=== PATIENT | male | born 1945 | race Caucasian/White ===

== ENCOUNTER 2016-07-07 20:32 | Emergency (ER) | payer MEDICARE, OTHER ==
[~2016-07-07] VITALS: Ht 182.9 cm; Wt 77.1 kg
[2016-07-07] MEDS ORDERED: Thiamine 100mg tab ORAL ONE (21:15)
[2016-07-07] MEDS ORDERED: Pedialyte 1000ml Btl ORAL ONE (21:30)
--- NOTE | 2016-07-07 21:35 | Emergency Room Report ---
History of Present Illness General Chief Complaint: Alcohol Intoxication Source: Patient Present Illness HPI Patient is a 70-year-old male who presented after increased change in mental status. Patient states that he had normally drinks 1 bottle of vodka a day. Patient stated that he had one bottle of vodka today. The patient been vomiting he denied abdominal pain. Patient reported having some nausea no vomiting. He was brought in by EMS. Patient states that he is hungry and wants to eat. Allergies: Coded Allergies: NO KNOWN ALLERGIES (Unverified Allergy, Unknown, 01/13/15) Patient History Past Medical History: HTN Reviewed Nursing Documentation: PMH: Agreed, PSxH: Agreed Nursing Documentation-PMH Hx Hypertension: Yes - High red blood platelets Review of Systems All Other Systems: negative except mentioned in HPI Physical Exam Vital Signs Date Time Temp Pulse Resp B/P Pulse Ox O2 Delivery O2 Flow Rate FiO2 07/07/16 20:32 98.2 86 16 130/88 97 Room Air Sp02 EP Interpretation: reviewed, normal General Appearance: normal inspection, well appearing, no apparent distress, alert, GCS 15 Head: atraumatic ENT: normal ENT inspection, hearing grossly normal, normal voice Neck: normal inspection, full range of motion, supple, no bony tend Respiratory: normal inspection, lungs clear, normal breath sounds, no respiratory distress, no retraction, no wheezing Cardiovascular #1: regular rate, rhythm, no edema Gastrointestinal: normal inspection, normal bowel sounds, non tender, soft, no guarding, no hernia Genitourinary: no CVA tenderness Musculoskeletal: normal inspection, back normal, normal range of motion Neurologic: normal inspection, alert, oriented x3, responsive, 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 Differential diagnosis included but was not limited to ischemic stroke, subarachnoid hemorrhage, hypoglycemia, spinal cord injury, neurodegenerative disorder, urinary tract infection, hypoxemia. Per patient's history patient is likely intoxicated with alcohol. The patient reported having poor IV access and heat and had been tolerating oral fluids well. The patient was given oral thiamine as well as fluids. Patient gradual improvement in his mental status. Anticipate the patient will be discharged home after more sober. Labs Test 5/23/17 02:32 Urine Color Yellow Urine Appearance Clear Urine pH 6.5 (4.5-8.0) Urine Specific [place] 1.005 (1.005-1.035) Urine Protein Negative (NEGATIVE) Urine Glucose (UA) Negative (NEGATIVE) Urine Ketones Negative (NEGATIVE) Urine Occult Blood Negative (NEGATIVE) Urine Nitrite Negative (NEGATIVE) Urine Bilirubin Negative (NEGATIVE) Urine Urobilinogen Normal MG/DL (0.0-1.0) Urine Leukocyte Esterase Negative (NEGATIVE) Last Vital Signs Date Time Temp Pulse Resp B/P Pulse Ox O2 Delivery O2 Flow Rate FiO2 07/07/16 20:32 98.2 86 16 130/88 97 Room Air Status: improved Disposition: HOME, SELF-CARE Condition: Stable Kirt Roa July 07, 2016 21:35
[2016-07-07 23:20] VITALS: BP 145/89
[2016-07-08 02:58] LABS: APPEARANCE,URINE CLEAR; KETONES,URINE NEGATIVE (NEGATIVE); LEUKOCYTE ESTERASE ,URINE NEGATIVE (NEGATIVE); NITRITE,URINE NEGATIVE (NEGATIVE); PH,URINE 6.5 (4.5-8.0); PROTEIN,URINE NEGATIVE (NEGATIVE); UROBILINOGEN,URINE NORMAL MG/DL (0.0-1.0)
[2016-07-08 03:10] VITALS: BP 153/89
[2016-07-08] MEDS ORDERED: chlordiazePOXIDE 25mg Cap ONE (06:09)
[2016-07-08] MEDS ORDERED: chlordiazePOXIDE 25mg Cap ORAL ONE (06:15)
[2016-07-08 06:16] VITALS: BP 160/86
[2016-07-08 06:17] VITALS: BP 160/86
--- NOTE | 2016-07-08 13:32 | Diagnostic Imaging Report ---
Indication: SOB Technique: One view of the chest Comparison: none Findings: Lungs and pleural space are clear. Heart size is borderline enlarged. The aorta is tortuous and somewhat ectatic. There is surgical hardware in the right shoulder. There are surgical clips in the neck Impression: Borderline cardiomegaly. No definite acute process Incidental findings as noted
--- NOTE | 2016-07-08 18:33 | Cardiology Report ---
APPROVED REPORT EKG Measurement Heart [id number] ID [id number] Unusual P axis, possible ectopic atrial rhythm Anterior infarct, age undetermined Abnormal ECG
== END 2016-07-08 06:17 | disposition home or self-care (01) ==
LOC: EDBD 20:32 → EDUNIT# 20:32 → EMR 20:48
DX: F10.129 Alcohol abuse with intoxication, unspecified (principal); I10 Essential (primary) hypertension
CPT/HCPCS: 71010; 81003; 93005; 99284

== ENCOUNTER 2017-02-12 15:40 | Emergency (ER) | payer MEDICARE, OTHER ==
[~2017-02-12] VITALS: Ht 182.9 cm; Wt 86.2 kg
[2017-02-12] MEDS ORDERED: IBUPROFEN600 MG ORAL (16:51)
[2017-02-12] MEDS ORDERED: Ketorolac 30mg Inj IM ONE (17:00)
[2017-02-12 17:05] VITALS: BP_SYST 160; BP_DIAS 105; BP_DIAS 89
--- NOTE | 2017-02-14 15:13 | Emergency Room Report ---
History of Present Illness General Chief Complaint: Lower Back Pain or Injury Source: Patient, EMS Present Illness HPI 71-year-old male presents ED pending of back pain. Brought in by EMS. Patient states he fell out of his bed today landing on his back. Denies hitting his head or LOC. Patient presents with back pain, sharp, nonradiating. Denies any other injuries. No other aggravating denies any other associated symptoms Allergies: Coded Allergies: NO KNOWN ALLERGIES (Unverified Allergy, Unknown, 01/13/15) Patient History Past Medical History: HTN Past Surgical History: none Pertinent Family History: none Social History: Denies: smoking, alcohol use, drug use Immunizations: UTD Reviewed Nursing Documentation: PMH: Agreed, PSxH: Agreed Nursing Documentation-PMH Past Medical History: No History, Except For Hx Hypertension: Yes Review of Systems All Other Systems: negative except mentioned in HPI Physical Exam Vital Signs Date Time Temp Pulse Resp B/P (MAP) Pulse Ox O2 Delivery O2 Flow Rate FiO2 02/12/17 15:37 98.1 80 16 164/100 97 Room Air Sp02 EP Interpretation: reviewed, normal General Appearance: no apparent distress, alert, GCS 15, non-toxic Head: normocephalic, atraumatic Eyes: bilateral eye normal inspection, bilateral eye PERRL ENT: hearing grossly normal, normal pharynx, no angioedema, normal voice Neck: full range of motion, supple/symm/no masses Respiratory: chest non-tender, lungs clear, normal breath sounds, speaking full sentences Cardiovascular #1: regular rate, rhythm, no edema Cardiovascular #2: 2+ carotid (R), 2+ carotid (L), 2+ radial (R), 2+ radial (L) , 2+ dorsalis pedis (R), 2+ dorsalis pedis (L) Gastrointestinal: normal bowel sounds, non tender, soft, non-distended, no guarding, no rebound Rectal: deferred Genitourinary: normal inspection, no CVA tenderness, no vertebral tenderness Musculoskeletal: back normal, gait/station normal, normal range of motion, non- tender, tender - paraspinal Neurologic: alert, oriented x3, responsive, motor strength/tone normal, sensory intact, speech normal Psychiatric: judgement/insight normal, memory normal, mood/affect normal, no suicidal/homicidal ideation Reflexes: 3+ bicep (R), 3+ bicep (L), 3+ tricep (R), 3+ tricep (L), 3+ knee (R) , 3+ knee (L) Skin: normal color, no rash, warm/dry, well hydrated Lymphatic: no adenopathy Medical Decision Making Diagnostic Impression: Primary Impression: Low back pain Qualified Codes: M54.5 - Low back pain ER Course Hospital Course 71-year-old male presents ED complaining of lower back pain. fall from bed Differential diagnoses include: pyelonephritis, kidney stone, muscle strain, Lspine fracture Clinical course Patient placed on stretcher. After initial history physical exam reveals a male in no acute distress. There is no vertebral body tenderness in the C- spine T-spine or L-spine. Some paraspinal lumbar tenderness noted. Remainder physical exam is unremarkable. I ordered toradol for pain. Upon reassessment patient states pain has improved. Diagnosis - back pain Stable and discharged to home with prescription for Motrin. Followup with PMD. Return to ED if symptoms recur or worsen Last Vital Signs Date Time Temp Pulse Resp B/P (MAP) Pulse Ox O2 Delivery O2 Flow Rate FiO2 02/12/17 17:05 97.9 100 16 160/89 98 Room Air Status: improved Disposition: HOME, SELF-CARE Condition: Stable Scripts Ibuprofen* (MOTRIN*) 600 Mg Tablet 600 MG ORAL Q8H Y for For Pain, #30 TAB 0 Refills Prov: RAFITA DESOUZA M.D. 02/12/17 Referrals: NOT CHOSEN IPA/,REFERRING (PCP) Patient Instructions: Back Pain, Adult RAFITA DESOUZA M.D. Feb 14, 2017 15:13
== END 2017-02-12 17:30 | disposition home or self-care (01) ==
LOC: EDBD 15:40 → EMR 17:28
DX: M54.5 Low back pain (principal); I10 Essential (primary) hypertension
CPT/HCPCS: 96372; 99283; J1885

== ENCOUNTER 2017-05-19 13:54 | Inpatient (IN) | payer MEDICARE, OTHER ==
[~2017-05-19] VITALS: Ht 180.3 cm; Wt 78.2 kg
[~2017-05-19 13:54] MED LIST: ASPIR 8181 MG ORAL; IBUPROFEN600 MG ORAL
--- NOTE | 2017-05-19 14:06 | Emergency Room Report ---
History of Present Illness General Chief Complaint: Abdominal Pain Source: EMS Present Illness HPI Patient is a 71-year-old male brought in by EMS after increased chest pain. Patient had reported increased chest discomfort which began approximately 8:00 in the morning. The patient denied any fever or cough. He reports having increased abdominal pain. The patient states he had prior history of heavy alcohol abuse and quit alcohol approximately 2 weeks ago. 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 Allergies: Coded Allergies: HEPARIN (Unverified Allergy, Severe, 05/19/17) Patient History Past Medical History: see triage record Reviewed Nursing Documentation: PMH: Agreed; PSxH: Agreed Nursing Documentation-PMH Hx Hypertension: Yes - High red blood platelets Review of Systems All Other Systems: negative except mentioned in HPI Physical Exam Vital Signs Date Time Temp Pulse Resp B/P (MAP) Pulse Ox O2 Delivery O2 Flow Rate FiO2 05/19/17 13:48 97.8 90 19 157/94 97 Room Air 97.9 Sp02 EP Interpretation: reviewed, normal General Appearance: normal inspection, well appearing, no apparent distress, alert, GCS 15 Head: atraumatic ENT: normal ENT inspection, hearing grossly normal, normal voice Neck: normal inspection, full range of motion, supple, no bony tend Respiratory: normal inspection, lungs clear, normal breath sounds, no respiratory distress, no retraction, no wheezing Cardiovascular #1: regular rate, rhythm, no edema Gastrointestinal: normal inspection, normal bowel sounds, non tender, soft, no guarding, no hernia Genitourinary: no CVA tenderness Musculoskeletal: normal inspection, back normal, normal range of motion Neurologic: normal inspection, alert, oriented x3, responsive, catalyst impregnator III-XII nml as tested, speech normal Psychiatric: normal inspection, judgement/insight normal, mood/affect normal Skin: normal inspection, normal color, no rash Medical Decision Making Diagnostic Impression: Primary Impression: ACS (acute coronary syndrome) Additional Impressions: CHF (congestive heart failure) Polycythemia vera Splenomegaly Gallstone ER Course Patient presented for abdominal pain. Differential diagnoses included ischemic bowel, appendicitis, perforated viscus, abdominal aortic aneurysm, inferior myocardial infarction, viral gastroenteritis Because of complexity of patient's case laboratory testing and imaging studies were ordered.Laboratory testing showed elevation of the patient's white blood count as well as his hemoglobin as well as platelet count. This is consistent with possible polycythemia vera. The testing was notable for elevated BNP. Chest x-ray one view read by radiology showed cardiomegaly without adithya pulmonary edema consistent with congestive heart failure.The patient was noted to be in an alcohol treatment facility which requested that the patient receive no narcotics. The patient was given non narcotic pain medications with improvement.Dr. Richard was contacted for inpatient management due to complexity of medical condition. Labs Test 05/19/17 15:24 05/19/17 18:00 White Blood Count 19.8 K/UL (4.8-10.8) Red Blood Count 6.88 M/UL (4.70-6.10) Hemoglobin 17.8 G/DL (14.2-18.0) Hematocrit 53.6 % (42.0-52.0) Mean Corpuscular Volume 78 FL (80-99) Mean Corpuscular Hemoglobin 25.9 PG (27.0-31.0) Mean Corpuscular Hemoglobin Concent 33.3 G/DL (32.0-36.0) Red Cell Distribution Width 15.8 % (11.6-14.8) Platelet Count 853 K/UL (150-450) Mean Platelet Volume 6.8 FL (6.5-10.1) Neutrophils (%) (Auto) % (45.0-75.0) Lymphocytes (%) (Auto) % (20.0-45.0) Monocytes (%) (Auto) % (1.0-10.0) Eosinophils (%) (Auto) % (0.0-3.0) Basophils (%) (Auto) % (0.0-2.0) Differential Total Cells Counted 100 Neutrophils % (Manual) 84 % (45-75) Lymphocytes % (Manual) 8 % (20-45) Monocytes % (Manual) 5 % (1-10) Eosinophils % (Manual) 2 % (0-3) Basophils % (Manual) 1 % (0-2) Band Neutrophils 0 % (0-8) Platelet Estimate Increased Platelet Morphology Normal Red Blood Cell Morphology Normal Sodium Level 137 MMOL/L (136-145) Potassium Level 4.7 MMOL/L (3.5-5.1) Chloride Level 104 MMOL/L (98-107) Carbon Dioxide Level 20 MMOL/L (21-32) Anion Gap 13 mmol/L (5-15) Blood Urea Nitrogen 20 mg/dL (7-18) Creatinine 0.8 MG/DL (0.55-1.30) Estimat Glomerular Filtration Rate > 60 mL/min (>60) Glucose Level 98 MG/DL (74-106) Calcium Level 8.9 MG/DL (8.5-10.1) Total Bilirubin 0.5 MG/DL (0.2-1.0) Aspartate Amino Transf (AST/SGOT) 40 U/L (15-37) Alanine Aminotransferase (ALT/SGPT) 16 U/L (12-78) Alkaline Phosphatase 110 U/L (46-116) Total Creatine Kinase 70 U/L (26-308) Creatine Kinase MB 0.9 NG/ML (0.0-3.6) Creatine Kinase MB Relative Index 1.2 Troponin I 0.000 ng/mL (0.000-0.056) Pro-B-Type Natriuretic Peptide 1273 pg/mL (0-125) Total Protein 8.0 G/DL (6.4-8.2) Albumin 4.2 G/DL (3.4-5.0) Globulin 3.8 g/dL Albumin/Globulin Ratio 1.1 (1.0-2.7) Lipase 200 U/L (73-393) Urine Color Pale yellow Urine Appearance Clear Urine pH 5 (4.5-8.0) Urine Specific [place] 1.010 (1.005-1.035) Urine Protein 1+ (NEGATIVE) Urine Glucose (UA) Negative (NEGATIVE) Urine Ketones Negative (NEGATIVE) Urine Occult Blood Negative (NEGATIVE) Urine Nitrite Negative (NEGATIVE) Urine Bilirubin Negative (NEGATIVE) Urine Urobilinogen Normal MG/DL (0.0-1.0) Urine Leukocyte Esterase 1+ (NEGATIVE) Urine RBC 0-2 /HPF (0 - 0) Urine WBC 2-4 /HPF (0 - 0) Urine Squamous Epithelial Cells None /LPF (NONE/OCC) Urine Amorphous Sediment Few /LPF (NONE) Urine Bacteria Few /HPF (NONE) EKG Diagnostic Results Rate: normal Rhythm: NSR ST Segments: other - poor r wave progression Last Vital Signs Date Time Temp Pulse Resp B/P (MAP) Pulse Ox O2 Delivery O2 Flow Rate FiO2 05/19/17 13:48 97.8 90 19 157/94 97 Room Air 97.9 Status: improved Disposition: ADMITTED INPATIENT Condition: Stable Kirt Roa May 19, 2017 14:06
[2017-05-19] MEDS ORDERED: Aspirin Baby 81mg ORAL ONE (14:15)
[2017-05-19] MEDS ORDERED: Morphine Sulfate 4mg/ml Inj IVP ONE (14:15)
[2017-05-19 14:25] VITALS: BP 157/94
[2017-05-19] MEDS ORDERED: Lidocaine 2% Visc 15ml soln ORAL ONE (15:00)
[2017-05-19] MEDS ORDERED: Dicyclomine HCl 10mg/5ml oral soln ORAL ONE (15:00)
--- NOTE | 2017-05-19 15:14 | Diagnostic Imaging Report ---
Indication: Shortness of breath Technique: One view of the chest Comparison: none Findings: The heart is borderline enlarged. The aorta is tortuous. Upper mediastinum is unremarkable. Surgical hardware is seen in the right shoulder. Findings are unchanged Impression: No acute process
[2017-05-19 15:40] VITALS: BP 155/87
[2017-05-19 15:42] LABS: HEMATOCRIT 53.6 % (42.0-52.0); HEMOGLOBIN 17.8 G/DL (14.2-18.0); MEAN CORPUSCULAR VOLUME 78 FL (80-99); PLATELET COUNT 853 K/UL (150-450); RED BLOOD COUNT 6.88 M/UL (4.70-6.10); RED CELL DISTRIBUTION WIDTH 15.8 % (11.6-14.8); WHITE BLOOD COUNT 19.8 K/UL (4.8-10.8)
[2017-05-19 15:54] LABS: ANION GAP 13 mmol/L (5-15); BLOOD UREA NITROGEN 20 mg/dL (7-18); CALCIUM 8.9 MG/DL (8.5-10.1); CARBON DIOXIDE 20 MMOL/L (21-32); CHLORIDE 104 MMOL/L (98-107); CREATININE 0.8 MG/DL (0.55-1.30); POTASSIUM 4.7 MMOL/L (3.5-5.1); SODIUM 137 MMOL/L (136-145)
[2017-05-19 16:07] LABS: ALANINE AMINOTRANSFERASE 16 U/L (12-78); ALBUMIN 4.2 G/DL (3.4-5.0); ALBUMIN/GLOBULIN RATIO 1.1 (1.0-2.7); ALKALINE PHOSPHATASE 110 U/L (46-116); ASPARTATE AMINO TRANSFERASE 40 U/L (15-37); BILIRUBIN,TOTAL 0.5 MG/DL (0.2-1.0); CKMB 0.9 NG/ML (0.0-3.6); CREATINE KINASE 70 U/L (26-308)
--- NOTE | 2017-05-19 16:57 | Diagnostic Imaging Report ---
Clinical Indication: Abdominal pain, nausea, vomiting Technique: Patient given oral contrast. IV administration nonionic contrast. Venous phase spiral acquisition obtained through the abdomen and pelvis. Multiplanar reconstructions were generated. Total dose length product 764.2 mGycm. CTDIvol(s) 14.79 mGy. Dose reduction achieved using automated exposure control Comparison: none Findings: There is excellent quality GI tract opacification. Normal appendix. There is colonic diverticulosis. No evidence of diverticulitis. Scattered areas of apparent colonic wall thickening are all probably artifacts of underdistention. No small bowel distention or small bowel wall thickening. Ingested contrast is seen to traverse the entirety of the small bowel and of the colon. There is an is anastomotic staple line at the rectosigmoid junction. No evidence of adjacent recurrent abnormality. The distal esophagus, stomach, duodenum are unremarkable. The liver is unremarkable. The gallbladder contains gallstones. It is not distended and the wall is not thickened. No biliary ductal dilatation. The pancreas is unremarkable. The spleen is enlarged, measuring 16.7 cm long axis dimension. No focal abnormality. The adrenals are unremarkable. The kidneys demonstrate bilateral subcentimeter low-attenuation lesions which are too small to characterize. No calculi or hydronephrosis. Unremarkable bladder. Unusual dystrophic calcifications are seen posterior to the rectus abdominis muscle. The lung bases demonstrate areas of scarring or atelectasis bilaterally. The heart is enlarged. The visualized aortic root is ectatic but not quite aneurysmal, measuring 48 mm transverse diameter. The bones demonstrate age indeterminate compression fractures of T12 and L4. The T12 fracture results in focal kyphotic deformity. There is degenerative disc disease of the lumbar spine. Impression: No acute abnormality. Ingested contrast traverses entirety of the GI tract, so no obstructive pathology is evident Evidence of prior distal colon surgery Ectatic borderline aneurysmal aortic root. Correlate with clinical history and any prior exams that may be available, consider further evaluation with chest CT as clinically indicated Cholelithiasis Splenomegaly. Per discussion with referring physician, patient has history of hematopoietic disorder; finding likely related to such T12 and L4 vertebral body compression fractures. Age indeterminate. Consider MRI for better characterization if clinically relevant Cardiomegaly Bilateral basilar pulmonary atelectasis and/or scarring, left greater than right Bilateral subcentimeter low-attenuation renal lesions, too small to characterize, most likely benign simple cysts. No further follow-up necessary Degenerative spondylosis incidentally noted The CT scanner at [facility] is accredited by the [employer] and the scans are performed using protocols designed to limit radiation exposure to as low as reasonably achievable to attain images of sufficient resolution adequate for diagnostic evaluation.
[2017-05-19 17:04] VITALS: BP 145/88
[2017-05-19] MEDS ORDERED: HYDROCHLOROTHIA25 MG ORAL (17:18)
[2017-05-19] MEDS ORDERED: COREG6.25 MG ORAL (17:19)
[2017-05-19] MEDS ORDERED: DICYCLOMINE HCL10 MG PO (17:20)
[2017-05-19] MEDS ORDERED: ASPIRIN325 MG ORAL (18:09)
[2017-05-19 18:26] LABS: APPEARANCE,URINE CLEAR; BILIRUBIN, URINE NEGATIVE (NEGATIVE); COLOR,URINE PALE YELLOW; GLUCOSE, URINE (UA) NEGATIVE (NEGATIVE); KETONES,URINE NEGATIVE (NEGATIVE); LEUKOCYTE ESTERASE ,URINE 1+ (NEGATIVE); NITRITE,URINE NEGATIVE (NEGATIVE); PH,URINE 5 (4.5-8.0); PROTEIN,URINE 1+ (NEGATIVE); UROBILINOGEN,URINE NORMAL MG/DL (0.0-1.0)
[2017-05-19 19:10] VITALS: BP 118/78
[2017-05-19] MEDS ORDERED: Enalaprilat 2.5mg/2ml Inj IV PRN (21:30)
[2017-05-19] MEDS ORDERED: Morphine Sulfate 2mg/ml Inj IVP PRN (21:30)
[2017-05-19] MEDS ORDERED: Albuterol/Ipratropium 3ml neb HHN PRN (21:30)
[2017-05-19] MEDS ORDERED: Nitroglycerin Subl 0.4mg tab SL PRN (21:30)
[2017-05-19] MEDS ORDERED: dilTIAZem HCl 25mg/5ml Inj IV PRN (21:30)
[2017-05-19] MEDS ORDERED: Ketorolac 30mg Inj IV PRN (21:30)
[2017-05-19] MEDS ORDERED: Miralax 17gm pkt ORAL PRN (21:30)
[2017-05-19 22:06] VITALS: BP 119/72
[2017-05-19 23:15] VITALS: BP 153/92
[2017-05-20 04:00] VITALS: BP 131/90
[2017-05-20 07:56] LABS: BASOPHILS % (AUTO) 0.9 % (0.0-2.0); EOSINOPHILS % (AUTO) 3.5 % (0.0-3.0); HEMATOCRIT 55.7 % (42.0-52.0); MEAN CORPUSCULAR VOLUME 79 FL (80-99); NEUTROPHILS % (AUTO) 82.5 % (45.0-75.0); PLATELET COUNT 783 K/UL (150-450); RED BLOOD COUNT 7.01 M/UL (4.70-6.10); RED CELL DISTRIBUTION WIDTH 16.2 % (11.6-14.8); WHITE BLOOD COUNT 17.8 K/UL (4.8-10.8)
[2017-05-20 08:09] LABS: INR 1.2 (0.9-1.1)
[2017-05-20 08:23] LABS: CHOLESTEROL 92 MG/DL (< 200); HDL CHOLESTEROL 19 MG/DL (40-60); TRIGLYCERIDES 91 MG/DL (30-150)
[2017-05-20] MEDS: Aspirin Baby 81mg ORAL SCH (08:46)
[2017-05-20 09:00] VITALS: BP 120/85
[2017-05-20 12:00] VITALS: BP 130/90
--- NOTE | 2017-05-20 14:56 | History and Physical ---
History of Present Illness General Date patient seen: May 20, 2017 Reason for Hospitalization: Abdominal Pain Present Illness HPI 71-year-old male with hx of abdominal surgery secondary to "intestinal blockage", HTN, brought in by EMS after increased chest pain and abdominal pain. The patient states he had prior history of heavy alcohol abuse and quit alcohol approximately 2 weeks ago. He is admitted to telemetry for further evaluation. Allergies: Coded Allergies: HEPARIN (Unverified Allergy, Severe, 05/19/17) Medication History Scheduled Aspirin* (Aspirin*), 325 MG ORAL BID, (Reported) Discontinued Medications Aspirin* (Aspir 81*), 81 MG ORAL DAILY, (Reported) Discontinued Reason: Prescription changed Carvedilol (Coreg), 6.25 MG ORAL EVERY 12 HOURS Discontinued Reason: Pt stopped taking med Dicyclomine Hcl* (Dicyclomine Hcl*), 10 MG PO QID Discontinued Reason: Pt stopped taking med Hydrochlorothiazide* (Hydrochlorothiazide*), 25 MG ORAL DAILY Discontinued Reason: Pt stopped taking med Ibuprofen* (Motrin*), 600 MG ORAL Q8H PRN for For Pain Discontinued Reason: Pt stopped taking med Patient History Healthcare decision maker Resuscitation status Full Code Advanced Directive on File Past Medical/Surgical History Past Medical/Surgical History: (1) CHF (congestive heart failure) (2) Splenomegaly (3) Polycythemia vera Review of Systems All Other Systems: negative except mentioned in HPI Physical Exam General Appearance: WD/WN Lines, tubes and drains: peripheral HEENT: normocephalic, anicteric, PERRL Neck: non-tender, normal alignment, supple Respiratory/Chest: chest wall non-tender, lungs clear Cardiovascular/Chest: normal peripheral pulses, normal rate Abdomen: normal bowel sounds, non tender Genitourinary/Rectal: normal genital exam, normal rectal exam Extremities: normal range of motion 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 Last 24 Hour Vital Signs Date Time Temp Pulse Resp B/P (MAP) Pulse Ox O2 Delivery O2 Flow Rate FiO2 05/20/17 12:00 97.2 66 21 130/90 98 Room Air 97.2 05/20/17 11:56 67 05/20/17 09:00 97.5 78 20 120/85 95 Room Air 97.5 05/20/17 07:39 78 05/20/17 07:19 89 18 Room Air 05/20/17 04:00 97.3 74 18 131/90 94 Room Air 21 97.3 05/20/17 04:00 75 05/19/17 23:15 98.1 69 18 153/92 97 Room Air 21 98.1 05/19/17 23:14 71 05/19/17 22:38 98.1 77 19 119/72 99 Room Air 98.1 05/19/17 22:06 98.1 77 19 119/72 99 Room Air 98.1 05/19/17 19:10 98.1 76 19 118/78 99 Room Air 98.1 05/19/17 17:04 98.1 78 19 145/88 98 Room Air 98.1 05/19/17 15:40 97.9 77 19 155/87 97 Room Air 97.9 Intake and Output 05/19/17 05/20/17 19:00 07:00 Intake Total 400 ml Balance 400 ml Intake Oral 400 ml # Voids 1 Laboratory Tests Test 05/19/17 15:24 05/19/17 18:00 05/20/17 06:50 White Blood Count 19.8 K/UL (4.8-10.8) H 17.8 K/UL (4.8-10.8) H Red Blood Count 6.88 M/UL (4.70-6.10) H 7.01 M/UL (4.70-6.10) H Hemoglobin 17.8 G/DL (14.2-18.0) 18.0 G/DL (14.2-18.0) Hematocrit 53.6 % (42.0-52.0) H 55.7 % (42.0-52.0) H Mean Corpuscular Volume 78 FL (80-99) L 79 FL (80-99) L Mean Corpuscular Hemoglobin 25.9 PG (27.0-31.0) L 25.7 PG (27.0-31.0) L Mean Corpuscular Hemoglobin Concent 33.3 G/DL (32.0-36.0) 32.3 G/DL (32.0-36.0) Red Cell Distribution Width 15.8 % (11.6-14.8) H 16.2 % (11.6-14.8) H Platelet Count 853 K/UL (150-450) H 783 K/UL (150-450) H Mean Platelet Volume 6.8 FL (6.5-10.1) 6.9 FL (6.5-10.1) Neutrophils (%) (Auto) % (45.0-75.0) 82.5 % (45.0-75.0) H Lymphocytes (%) (Auto) % (20.0-45.0) 9.0 % (20.0-45.0) L Monocytes (%) (Auto) % (1.0-10.0) 4.0 % (1.0-10.0) Eosinophils (%) (Auto) % (0.0-3.0) 3.5 % (0.0-3.0) H Basophils (%) (Auto) % (0.0-2.0) 0.9 % (0.0-2.0) Differential Total Cells Counted 100 Neutrophils % (Manual) 84 % (45-75) H Lymphocytes % (Manual) 8 % (20-45) L Monocytes % (Manual) 5 % (1-10) Eosinophils % (Manual) 2 % (0-3) Basophils % (Manual) 1 % (0-2) Band Neutrophils 0 % (0-8) Platelet Estimate Increased H Platelet Morphology Normal Red Blood Cell Morphology Normal Sodium Level 137 MMOL/L (136-145) Potassium Level 4.7 MMOL/L (3.5-5.1) Chloride Level 104 MMOL/L (98-107) Carbon Dioxide Level 20 MMOL/L (21-32) L Anion Gap 13 mmol/L (5-15) Blood Urea Nitrogen 20 mg/dL (7-18) H Creatinine 0.8 MG/DL (0.55-1.30) Estimat Glomerular Filtration Rate > 60 mL/min (>60) Glucose Level 98 MG/DL (74-106) Calcium Level 8.9 MG/DL (8.5-10.1) Total Bilirubin 0.5 MG/DL (0.2-1.0) Aspartate Amino Transf (AST/SGOT) 40 U/L (15-37) H Alanine Aminotransferase (ALT/SGPT) 16 U/L (12-78) Alkaline Phosphatase 110 U/L (46-116) Total Creatine Kinase 70 U/L (26-308) Creatine Kinase MB 0.9 NG/ML (0.0-3.6) Creatine Kinase MB Relative Index 1.2 Troponin I 0.000 ng/mL (0.000-0.056) 0.003 ng/mL (0.000-0.056) Pro-B-Type Natriuretic Peptide 1273 pg/mL (0-125) H Total Protein 8.0 G/DL (6.4-8.2) Albumin 4.2 G/DL (3.4-5.0) Globulin 3.8 g/dL Albumin/Globulin Ratio 1.1 (1.0-2.7) Lipase 200 U/L (73-393) Urine Color Pale yellow Urine Appearance Clear Urine pH 5 (4.5-8.0) Urine Specific [place] 1.010 (1.005-1.035) Urine Protein 1+ (NEGATIVE) H Urine Glucose (UA) Negative (NEGATIVE) Urine Ketones Negative (NEGATIVE) Urine Occult Blood Negative (NEGATIVE) Urine Nitrite Negative (NEGATIVE) Urine Bilirubin Negative (NEGATIVE) Urine Urobilinogen Normal MG/DL (0.0-1.0) Urine Leukocyte Esterase 1+ (NEGATIVE) H Urine RBC 0-2 /HPF (0 - 0) H Urine WBC 2-4 /HPF (0 - 0) Urine Squamous Epithelial Cells None /LPF (NONE/OCC) Urine Amorphous Sediment Few /LPF (NONE) H Urine Bacteria Few /HPF (NONE) Prothrombin Time 12.9 SEC (9.30-11.50) H Prothromb Time International Ratio 1.2 (0.9-1.1) H Activated Partial Thromboplast Time 34 SEC (23-33) H C-Reactive Protein, Quantitative < 0.4 mg/dL (0.00-0.90) Triglycerides Level 91 MG/DL (30-150) Cholesterol Level 92 MG/DL (< 200) LDL Cholesterol 61 mg/dL (<100) HDL Cholesterol 19 MG/DL (40-60) L Cholesterol/HDL Ratio 4.8 (3.3-4.4) H Thyroid Stimulating Hormone (TSH) 2.685 uiU/mL (0.358-3.740) Height (Feet): 5 Height (Inches): 11.00 Weight (Pounds): 172 Medications Current Medications Medications (Trade) Dose Ordered Sig/Sameer Route PRN Reason Start Time Stop Time Status Last Admin Dose Admin Acetaminophen (Tylenol) 650 mg Q4H PRN ORAL FEVER 05/19/17 21:30 06/18/17 21:29 Albuterol/ Ipratropium (Albuterol/ Ipratropium) 3 ml Q4H PRN HHN Shortness of Breath 05/19/17 21:30 05/24/17 21:29 Aspirin (ASA) 162 mg DAILY ORAL 05/20/17 09:00 06/19/17 08:59 05/20/17 08:46 Diltiazem HCl (Cardizem) 10 mg Q1H PRN IV HR > 120 05/19/17 21:30 06/18/17 21:29 Enalaprilat (Vasotec) 2.5 mg Q6H PRN IV sbp more than 160 05/19/17 21:30 06/18/17 21:29 Morphine Sulfate (Morphine Sulfate) 2 mg Q4H PRN IVP severe Pain (Pain Scale 7-10) 05/19/17 21:30 05/26/17 21:29 Nitroglycerin (Ntg) 0.4 mg Q5MIN X 3 DOSES PRN SL Prn Chest Pain 05/19/17 21:30 06/18/17 21:29 Ondansetron HCl (Zofran) 4 mg Q6H PRN IVP Nausea & Vomiting 05/19/17 21:30 06/18/17 21:29 Pantoprazole (Protonix) 40 mg DAILY ORAL 05/20/17 09:00 06/19/17 08:59 05/20/17 08:46 Polyethylene Glycol (Miralax) 17 gm DAILYPRN PRN ORAL Constipation 05/19/17 21:30 06/18/17 21:29 Temazepam (Restoril) 15 mg HSPRN PRN ORAL Insomnia 05/19/17 21:30 05/26/17 21:29 Assessment/Plan Problem List: (1) ACS (acute coronary syndrome) ICD Codes: I24.9 - Acute ischemic heart disease, unspecified SNOMED: 383472777 (2) Intractable abdominal pain ICD Codes: R10.9 - Unspecified abdominal pain SNOMED: 63776777, 366849976 (3) Splenomegaly ICD Codes: R16.1 - Splenomegaly, not elsewhere classified SNOMED: 54396402 Assessment/Plan serial ekg, troponin, echo cardio to see GI evaluaion hematology to see for increased WBC blood smear symptomatic treatment. Kyleigh Richard MD May 20, 2017 14:56
--- NOTE | 2017-05-20 15:36 | Cardiology Report ---
APPROVED REPORT EXAM: Two-dimensional and M-mode echocardiogram with Doppler and color Doppler. INDICATION Left Ventricular Function M-Mode DIMENSIONS IVSd1.2 (0.7-1.1cm)Left Atrium (MM)3.4 (1.6-4.0cm) LVDd5.1 (3.5-5.6cm)Aortic Root3.1 (2.0-3.7cm) PWd0.9 (0.7-1.1cm)Aortic Cusp Exc.2.0 (1.5-2.0cm) LVDs3.3 (2.5-4.0cm) PWs1.4 cm Global left ventricular hypokinesis. Normal left ventricular chamber size. Left ventricular ejection fraction estimated to be 40 %. Mild left ventricular hypertrophy. Anterior Echo-free space, may be due to pericardial fat or effusion. All other cardiac chamber sizes are within normal limits. Mild focal aortic valve sclerosis with adequate cusp excursion. Mildly thickened mitral valve leaflets with normal excursion. Mild mitral annulus and aortic root calcification. Normal pulmonic valve structure. Normal tricuspid valve structure. IVC is normal in size with physiological collapse. A color flow and spectral Doppler study was performed and revealed: Moderate aortic insufficiency. Trace mitral regurgitation. Mitral diastolic velocities suggest mild left ventricular diastolic dysfunction (Grade I). Trace tricuspid regurgitation. Tricuspid systolic velocities suggests peak right ventricular systolic pressure of 9 mmHg. Trace pulmonic regurgitation present.
[2017-05-20 16:00] VITALS: BP 130/84
--- NOTE | 2017-05-20 16:38 | Cardiology Report ---
APPROVED REPORT EKG Measurement Heart [id number] Normal sinus rhythm Possible Left atrial enlargement Left anterior fascicular block Possible Inferior infarct, age undetermined Anterior infarct, age undetermined Abnormal ECG
--- NOTE | 2017-05-20 17:24 | Cardiology Progress Note ---
Assessment/Plan Assessment/Plan ? 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 to me [place] essential thormbocytosis alcoholism trop neg should have an ischemia evlaution will need tostart on low dose acei abn ekg may be suggestive of old myocardial injury as well needs hemaotoligst to see fo thormbocytosis used to be on hyroxyurea which h has not taken for a while [id number] Objective Last 24 Hour Vital Signs Date Time Temp Pulse Resp B/P (MAP) Pulse Ox O2 Delivery O2 Flow Rate FiO2 05/20/17 16:00 97.2 69 20 130/84 97 Room Air 97.2 05/20/17 12:00 97.2 66 21 130/90 98 Room Air 97.2 05/20/17 11:56 67 05/20/17 09:00 97.5 78 20 120/85 95 Room Air 97.5 05/20/17 07:39 78 05/20/17 07:19 89 18 Room Air 05/20/17 04:00 97.3 74 18 131/90 94 Room Air 21 97.3 05/20/17 04:00 75 05/19/17 23:15 98.1 69 18 153/92 97 Room Air 21 98.1 05/19/17 23:14 71 05/19/17 22:38 98.1 77 19 119/72 99 Room Air 98.1 05/19/17 22:06 98.1 77 19 119/72 99 Room Air 98.1 05/19/17 19:10 98.1 76 19 118/78 99 Room Air 98.1 Intake and Output 05/19/17 05/20/17 19:00 07:00 Intake Total 400 ml Balance 400 ml Intake Oral 400 ml # Voids 1 Laboratory Tests Test 05/19/17 18:00 05/20/17 06:50 Urine Color Pale yellow Urine Appearance Clear Urine pH 5 (4.5-8.0) Urine Specific [place] 1.010 (1.005-1.035) Urine Protein 1+ (NEGATIVE) H Urine Glucose (UA) Negative (NEGATIVE) Urine Ketones Negative (NEGATIVE) Urine Occult Blood Negative (NEGATIVE) Urine Nitrite Negative (NEGATIVE) Urine Bilirubin Negative (NEGATIVE) Urine Urobilinogen Normal MG/DL (0.0-1.0) Urine Leukocyte Esterase 1+ (NEGATIVE) H Urine RBC 0-2 /HPF (0 - 0) H Urine WBC 2-4 /HPF (0 - 0) Urine Squamous Epithelial Cells None /LPF (NONE/OCC) Urine Amorphous Sediment Few /LPF (NONE) H Urine Bacteria Few /HPF (NONE) White Blood Count 17.8 K/UL (4.8-10.8) H Red Blood Count 7.01 M/UL (4.70-6.10) H Hemoglobin 18.0 G/DL (14.2-18.0) Hematocrit 55.7 % (42.0-52.0) H Mean Corpuscular Volume 79 FL (80-99) L Mean Corpuscular Hemoglobin 25.7 PG (27.0-31.0) L Mean Corpuscular Hemoglobin Concent 32.3 G/DL (32.0-36.0) Red Cell Distribution Width 16.2 % (11.6-14.8) H Platelet Count 783 K/UL (150-450) H Mean Platelet Volume 6.9 FL (6.5-10.1) Neutrophils (%) (Auto) 82.5 % (45.0-75.0) H Lymphocytes (%) (Auto) 9.0 % (20.0-45.0) L Monocytes (%) (Auto) 4.0 % (1.0-10.0) Eosinophils (%) (Auto) 3.5 % (0.0-3.0) H Basophils (%) (Auto) 0.9 % (0.0-2.0) Prothrombin Time 12.9 SEC (9.30-11.50) H Prothromb Time International Ratio 1.2 (0.9-1.1) H Activated Partial Thromboplast Time 34 SEC (23-33) H Troponin I 0.003 ng/mL (0.000-0.056) C-Reactive Protein, Quantitative < 0.4 mg/dL (0.00-0.90) Triglycerides Level 91 MG/DL (30-150) Cholesterol Level 92 MG/DL (< 200) LDL Cholesterol 61 mg/dL (<100) HDL Cholesterol 19 MG/DL (40-60) L Cholesterol/HDL Ratio 4.8 (3.3-4.4) H Thyroid Stimulating Hormone (TSH) 2.685 uiU/mL (0.358-3.740) GILLES MIN May 20, 2017 17:24
[2017-05-20 20:00] VITALS: BP 122/82
--- NOTE | 2017-05-20 21:30 | Consultation ---
DATE OF CONSULTATION: 05/20/2017 CARDIOLOGY CONSULTATION CONSULTING PHYSICIAN: Shankar Mauricio M.D. REASON FOR REFERRAL: Chest pain. HISTORY OF PRESENT ILLNESS: This is a middle-aged gentleman who has a history of significant alcoholism, is now involved in alcohol rehabilitation program. The patient had two episodes of some nausea and vomiting. However, the set painter run sheet indicated that the patient was found in his bed at a sober living facility complaining of chest pain for approximately 5 to 6 hours, which he denied upon arrival of the paramedics. The patient was given some aspirin and was transferred to the emergency room. He absolutely denies any chest pain, pressure, tightness, heaviness, burning sensation in his chest. He denies any having any shortness of breath. No PND. No orthopnea. Occasional palpitation. No dizziness or lightheadedness. He does not have any exertional symptoms or shortness of breath. His main issue was that he has some abdominal discomfort. PAST MEDICAL HISTORY: Positive for high blood pressure. He has got essential thrombocytosis I suspect. No history of heart attack. No cancer. No stroke. No hepatitis, tuberculosis, asthma, or emphysema. No ulcers, kidney problems, liver problems, thyroid problems, anemia, arthritis, or prostate problems. ALLERGIES: He is allergic to heparin. SOCIAL HISTORY: He does not smoke. He has extensive alcohol intake, last alcoholic drink was 17 days ago. No drugs . REVIEW OF SYSTEMS: GASTROINTESTINAL: As mentioned, he did have 2 bouts of nausea and vomiting over two days prior to coming into the hospital. Otherwise negative. GENITOURINARY: Negative. PULMONARY: Negative CONSTITUTIONAL: Negative. NEUROLOGIC: Negative. PHYSICAL EXAMINATION: GENERAL: Shows to be middle-aged gentleman, in no respiratory distress. HEENT: Unremarkable. NECK: Supple. No jugular venous distention. No abdominojugular reflux noted. LUNGS: Clear to auscultation and percussion. CARDIAC: S1 is normal. S2 is normal. Regular rate and rhythm. No heaves, thrills, or gallops noted. ABDOMEN: Soft and nontender. Positive bowel sounds. EXTREMITIES: There is no clubbing, cyanosis, or edema. NEUROLOGICAL: He is awake, alert, and responsive, in no apparent distress. LABORATORY AND DIAGNOSTIC DATA: The venous duplex study of lower extremities reportedly was negative. An echocardiogram has been performed, just the preliminary report showed some global hypokinesis that is not completely clear. Electrocardiogram has been performed by the paramedics indicated a poor R-wave progression with QRS waves in V1 through V6 in leftward axis that is documented. EKG performed here shows that seem the same pattern. This may be a left anterior fascicular block. A sinus rhythm with T-wave inversions being documented only in the aVL. Blood test, white count is 17.8 down from 19.2 with a hemoglobin of 18 and a platelet count of 783, 84 polys, 8 lymphocytes, and 2 eosinophils. Two sets of cardiac enzymes are negative. Sodium 137, potassium 4.7, chloride 104, bicarbonate 20, BUN of 20, creatinine 0.8, glucose of 98, and calcium is 8.9. Two sets of cardiac enzymes again negative. ProBNP is and 1273. Total cholesterol of 92 with an LDL of 61 and HDL of 19. Lipase is 200. TSH of 2.65. Coags, INR 1.2 and a PTT of 34. Urinalysis fairly unremarkable. A chest x-ray was performed showed no acute processes. CT scan of the abdomen and pelvis was performed that showed no acute abnormalities and just contrast show this has entirety of the GI tract. No obstructive pattern. There is evidence of prior distal colonic surgery, ectatic borderline aneurysmal aortic root. An echocardiogram was performed. The final reading shows global hypokinesis, ejection of 40%, moderate aortic regurgitation being documented on this. ASSESSMENT AND PLAN: 1. Questionable chest pain, although the patient denies. 2. Abdominal pains. 3. History of essential thrombocytosis. 4. Left ventricular systolic dysfunction. 5. Abnormal electrocardiogram. 6. Alcoholism. Dr. Richard, this patient was seen in cardiac consultation. I had a chance to review, although the echocardiogram was interpreted indicating the possibility of global hypokinesis on my review. It does not appear to be so as there was distal akinesis and in fact apical dyskinesis with distal apical akinesis as well. The proximal wall seemed to be functioning better. Normal mitral inflow pattern is documented. There is some aortic regurgitation being documented. The inferior wall also appears to be hypokinetic to me with a decreased ejection fraction. Although, alcoholism may be the possible causation of left ventricular systolic function in a global fashion, I suspect that this problem with segmental wall motion abnormalities may be related to coronary artery disease and he should probably have a perfusion imaging to address whether there is any ischemic burden that he needs to have it further evaluated. He does have some essential thrombocytosis. He is usually on hydroxy urea, which he has not taken for a while. His blood pressure is somewhat at times elevated, but not significantly so, although he has been given some intravenous Vasotec. My recommendation again would be to perform perfusion imaging to start him on some low-dose EDISON inhibitors and consider Hematology evaluation for treatment of his essential thrombocytosis. Shankar Mauricio M.D. DR: Sid JOB#: [id number] CC:
[2017-05-20] MEDS: Lisinopril 2.5mg tab ORAL SCH (22:20)
[2017-05-20] MEDS: Hydroxyurea 500mg cap ORAL SCH (22:20)
[2017-05-21] VITALS: BP 128/86
[2017-05-21 08:00] VITALS: BP 113/75
--- NOTE | 2017-05-21 08:11 | Diagnostic Imaging Report ---
APPROVED REPORT CPT Code: 34157 Present Symptoms Comments: BILATERAL LEGS PAIN. BILATERAL: Imaging reveals a patent deep venous system bilaterally. There is no evidence of thrombus within the femoral, popliteal or tibial segments. The greater saphenous veins are also within normal limits. Doppler indicates normal spontaneous flow within these segments.
[2017-05-21] MEDS: Lisinopril 2.5mg tab ORAL SCH ×2 (08:31→17:39)
[2017-05-21] MEDS: Aspirin Baby 81mg ORAL SCH (08:31)
[2017-05-21 09:22] LABS: HEMATOCRIT 55.5 % (42.0-52.0); HEMOGLOBIN 17.8 G/DL (14.2-18.0); MEAN CORPUSCULAR VOLUME 80 FL (80-99); PLATELET COUNT 768 K/UL (150-450); RED BLOOD COUNT 6.97 M/UL (4.70-6.10); RED CELL DISTRIBUTION WIDTH 16.5 % (11.6-14.8); WHITE BLOOD COUNT 18.1 K/UL (4.8-10.8)
[2017-05-21 09:57] LABS: ALANINE AMINOTRANSFERASE 12 U/L (12-78); ALBUMIN 3.9 G/DL (3.4-5.0); ALBUMIN/GLOBULIN RATIO 1.1 (1.0-2.7); ALKALINE PHOSPHATASE 103 U/L (46-116); ANION GAP 10 mmol/L (5-15); ASPARTATE AMINO TRANSFERASE 28 U/L (15-37); BILIRUBIN,TOTAL 0.5 MG/DL (0.2-1.0); BLOOD UREA NITROGEN 19 mg/dL (7-18); CALCIUM 8.9 MG/DL (8.5-10.1); CARBON DIOXIDE 22 MMOL/L (21-32); CHLORIDE 105 MMOL/L (98-107); CREATININE 0.9 MG/DL (0.55-1.30); POTASSIUM 5.1 MMOL/L (3.5-5.1); SODIUM 137 MMOL/L (136-145)
[2017-05-21] MEDS ORDERED: Lexiscan 0.4mg/5ml syringe IV ONE (12:00)
--- NOTE | 2017-05-21 15:10 | Pulmonology Progress Note ---
Assessment/Plan Problems: (1) ACS (acute coronary syndrome) (2) Intractable abdominal pain (3) Splenomegaly Assessment/Plan stress test done, awaiting images symptomatic treatment ENT called, dc home if stress test negative f/u cardio recommendations. Subjective ROS Limited/Unobtainable: No Interval Events: doing better Allergies: Coded Allergies: HEPARIN (Unverified Allergy, Severe, 05/19/17) Objective Last 24 Hour Vital Signs Date Time Temp Pulse Resp B/P (MAP) Pulse Ox O2 Delivery O2 Flow Rate FiO2 05/21/17 12:00 68 05/21/17 08:31 113/75 05/21/17 08:00 66 05/21/17 08:00 97.9 66 20 113/75 97 Room Air 97.9 05/21/17 07:49 65 18 Room Air 05/21/17 04:00 89 05/21/17 00:00 97.9 70 18 128/86 95 Room Air 97.9 05/21/17 00:00 72 05/20/17 22:20 122/82 05/20/17 20:00 98.1 68 18 122/82 95 Room Air 98.1 05/20/17 20:00 72 05/20/17 16:00 97.2 69 20 130/84 97 Room Air 97.2 05/20/17 15:40 77 Intake and Output 05/20/17 05/21/17 19:00 07:00 Intake Total 760 ml 300 ml Balance 760 ml 300 ml Intake Oral 760 ml 300 ml # Voids 3 General Appearance: WD/WN HEENT: normocephalic, atraumatic Respiratory/Chest: chest wall non-tender, lungs clear Abdomen: normal bowel sounds, soft, non tender Extremities: no cyanosis, no clubbing 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 Lymphatic: no neck adenopathy Musculoskeletal: normal muscle bulk Laboratory Tests 05/21/17 09:00: White Blood Count 18.1H, Red Blood Count 6.97H, Hemoglobin 17.8, Hematocrit 55.5H, Mean Corpuscular Volume 80, Mean Corpuscular Hemoglobin 25.6L, Mean Corpuscular Hemoglobin Concent 32.1, Red Cell Distribution Width 16.5H, Platelet Count 768H, Mean Platelet Volume 6.7, Neutrophils (%) (Auto) , Lymphocytes (%) (Auto) , Monocytes (%) (Auto) , Eosinophils (%) (Auto) , Basophils (%) (Auto) , Differential Total Cells Counted 100, Neutrophils % ( Manual) 81H, Lymphocytes % (Manual) 12L, Monocytes % (Manual) 5, Eosinophils % ( Manual) 0, Basophils % (Manual) 2, Band Neutrophils 0, Platelet Estimate IncreasedH, Platelet Morphology Normal, Sodium Level 137, Potassium Level 5.1, Chloride Level 105, Carbon Dioxide Level 22, Anion Gap 10, Blood Urea Nitrogen 19H, Creatinine 0.9, Estimat Glomerular Filtration Rate > 60, Glucose Level 96, Calcium Level 8.9, Total Bilirubin 0.5, Aspartate Amino Transf (AST/SGOT) 28, Alanine Aminotransferase (ALT/SGPT) 12, Alkaline Phosphatase 103, Troponin I 0.000, Total Protein 7.6, Albumin 3.9, Globulin 3.7, Albumin/Globulin Ratio 1.1 Current Medications Medications (Trade) Dose Ordered Sig/Sameer Route PRN Reason Start Time Stop Time Status Last Admin Dose Admin Acetaminophen (Tylenol) 650 mg Q4H PRN ORAL FEVER 05/19/17 21:30 06/18/17 21:29 Albuterol/ Ipratropium (Albuterol/ Ipratropium) 3 ml Q4H PRN HHN Shortness of Breath 05/19/17 21:30 05/24/17 21:29 Aspirin (ASA) 162 mg DAILY ORAL 05/20/17 09:00 06/19/17 08:59 05/21/17 08:31 Diltiazem HCl (Cardizem) 10 mg Q1H PRN IV HR > 120 05/19/17 21:30 06/18/17 21:29 Enalaprilat (Vasotec) 2.5 mg Q6H PRN IV sbp more than 160 05/19/17 21:30 06/18/17 21:29 Folic Acid (Folate) 1 mg DAILY ORAL 05/22/17 09:00 06/21/17 08:59 Hydroxyurea (Hydrea) 500 mg QHS ORAL 05/20/17 21:00 05/25/17 20:59 05/20/17 22:20 Lisinopril (Zestril) 2.5 mg BID ORAL 05/20/17 20:00 06/19/17 19:59 05/21/17 08:31 Morphine Sulfate (Morphine Sulfate) 2 mg Q4H PRN IVP severe Pain (Pain Scale 7-10) 05/19/17 21:30 05/26/17 21:29 Multivitamins (Multivitamins) 1 tab DAILY ORAL 05/22/17 09:00 06/21/17 08:59 Nitroglycerin (Ntg) 0.4 mg Q5MIN X 3 DOSES PRN SL Prn Chest Pain 05/19/17 21:30 06/18/17 21:29 Ondansetron HCl (Zofran) 4 mg Q6H PRN IVP Nausea & Vomiting 05/19/17 21:30 06/18/17 21:29 Pantoprazole (Protonix) 40 mg DAILY ORAL 05/20/17 09:00 06/19/17 08:59 05/21/17 08:31 Polyethylene Glycol (Miralax) 17 gm DAILYPRN PRN ORAL Constipation 05/19/17 21:30 06/18/17 21:29 Temazepam (Restoril) 15 mg HSPRN PRN ORAL Insomnia 05/19/17 21:30 05/26/17 21:29 Thiamine HCl (Vitamin B1) 100 mg DAILY ORAL 05/22/17 09:00 06/21/17 08:59 Kyleigh Richard MD May 21, 2017 15:10
[2017-05-21 16:00] VITALS: BP 103/64
--- NOTE | 2017-05-21 18:22 | Cardiology Progress Note ---
Assessment/Plan Assessment/Plan 1. Questionable chest pain, although the patient denies.(he used andc as excuse to get out to sober living) 2. Abdominal pains. 3. History of essential thrombocytosis. 4. Left ventricular systolic dysfunction.segmental 5. Abnormal electrocardiogram. 6. Alcoholism. no sx of acs of chf awiat stress test ok to dc home if neg sig reversibilituy froma a cardiac viw point Subjective Cardiovascular: Denies: chest pain Respiratory: Denies: shortness of breath Gastrointestinal/Abdominal: Denies: abdominal pain, black stools Genitourinary: Denies: burning Objective Last 24 Hour Vital Signs Date Time Temp Pulse Resp B/P (MAP) Pulse Ox O2 Delivery O2 Flow Rate FiO2 05/21/17 17:39 103/64 05/21/17 16:00 93 05/21/17 16:00 96.6 69 20 103/64 97 Room Air 96.6 05/21/17 12:00 68 05/21/17 08:31 113/75 05/21/17 08:00 66 05/21/17 08:00 97.9 66 20 113/75 97 Room Air 97.9 05/21/17 07:49 65 18 Room Air 05/21/17 04:00 89 05/21/17 00:00 97.9 70 18 128/86 95 Room Air 97.9 05/21/17 00:00 72 05/20/17 22:20 122/82 05/20/17 20:00 98.1 68 18 122/82 95 Room Air 98.1 05/20/17 20:00 72 General Appearance: no apparent distress, alert Cardiovascular: normal rate, regular rhythm Respiratory/Chest: lungs clear, normal breath sounds Abdomen: normal bowel sounds, non tender, soft Extremities: no swelling Intake and Output 05/20/17 05/21/17 19:00 07:00 Intake Total 760 ml 300 ml Balance 760 ml 300 ml Intake Oral 760 ml 300 ml # Voids 3 Laboratory Tests Test 05/21/17 09:00 White Blood Count 18.1 K/UL (4.8-10.8) H Red Blood Count 6.97 M/UL (4.70-6.10) H Hemoglobin 17.8 G/DL (14.2-18.0) Hematocrit 55.5 % (42.0-52.0) H Mean Corpuscular Volume 80 FL (80-99) Mean Corpuscular Hemoglobin 25.6 PG (27.0-31.0) L Mean Corpuscular Hemoglobin Concent 32.1 G/DL (32.0-36.0) Red Cell Distribution Width 16.5 % (11.6-14.8) H Platelet Count 768 K/UL (150-450) H Mean Platelet Volume 6.7 FL (6.5-10.1) Neutrophils (%) (Auto) % (45.0-75.0) Lymphocytes (%) (Auto) % (20.0-45.0) Monocytes (%) (Auto) % (1.0-10.0) Eosinophils (%) (Auto) % (0.0-3.0) Basophils (%) (Auto) % (0.0-2.0) Differential Total Cells Counted 100 Neutrophils % (Manual) 81 % (45-75) H Lymphocytes % (Manual) 12 % (20-45) L Monocytes % (Manual) 5 % (1-10) Eosinophils % (Manual) 0 % (0-3) Basophils % (Manual) 2 % (0-2) Band Neutrophils 0 % (0-8) Platelet Estimate Increased H Platelet Morphology Normal Sodium Level 137 MMOL/L (136-145) Potassium Level 5.1 MMOL/L (3.5-5.1) Chloride Level 105 MMOL/L (98-107) Carbon Dioxide Level 22 MMOL/L (21-32) Anion Gap 10 mmol/L (5-15) Blood Urea Nitrogen 19 mg/dL (7-18) H Creatinine 0.9 MG/DL (0.55-1.30) Estimat Glomerular Filtration Rate > 60 mL/min (>60) Glucose Level 96 MG/DL (74-106) Calcium Level 8.9 MG/DL (8.5-10.1) Total Bilirubin 0.5 MG/DL (0.2-1.0) Aspartate Amino Transf (AST/SGOT) 28 U/L (15-37) Alanine Aminotransferase (ALT/SGPT) 12 U/L (12-78) Alkaline Phosphatase 103 U/L (46-116) Troponin I 0.000 ng/mL (0.000-0.056) Total Protein 7.6 G/DL (6.4-8.2) Albumin 3.9 G/DL (3.4-5.0) Globulin 3.7 g/dL Albumin/Globulin Ratio 1.1 (1.0-2.7) GILLES MIN May 21, 2017 18:22
[2017-05-21 20:00] VITALS: BP 113/76
--- NOTE | 2017-05-21 20:30 | Consultation ---
Robert Meade MD May 21, 2017 20:30
[2017-05-21] MEDS: Hydroxyurea 500mg cap ORAL SCH (20:55)
--- NOTE | 2017-05-21 23:15 | Consultation ---
DATE OF CONSULTATION: 05/21/2017 INFECTIOUS DISEASE CONSULTATION CONSULTING PHYSICIAN: Robert Meade M.D. REFERRING PHYSICIAN: Kyleigh Richard M.D. REASON FOR CONSULTATION: Evaluation of the patient for diarrhea and gastroenteritis. HISTORY OF PRESENT ILLNESS: The patient is a 71-year-old male with multiple medical problems as listed below, who came to the hospital because of epigastric pain and chest discomfort. The patient mentioned having diarrhea off and on about two to three loose stool recently. The patient's abdominal pain overall has been improved. Infectious Disease consultation has been requested for further evaluation of the patient and need for possible antibiotic treatment. The patient prior to admission was in sober living facility. PAST MEDICAL HISTORY: 1. Hypertension. 2. CHF. 3. History of colon resection in the past. MEDICATIONS: Off of antibiotics. The patient denies taking any antibiotics recently. ALLERGIES: Heparin. SOCIAL HISTORY: Significant for alcohol abuse. FAMILY HISTORY: Not contributing. REVIEW OF SYSTEMS: Ten-point review was done, except what was mentioned has been negative. PHYSICAL EXAMINATION: VITAL SIGNS: Temperature 96 degrees, blood pressure 102/64, pulse 86, and respiratory rate 18. HEENT: No pale conjunctivae. No icterus. NECK: No lymphadenopathy. CHEST: Clear. HEART: S1 and S2. ABDOMEN: Soft and nontender. EXTREMITIES: No cyanosis at this time. NEUROLOGIC: Awake and alert. LABORATORY DATA: White blood cells 18, hemoglobin 6.9, and platelets 768. UA unremarkable. BUN 19 and creatinine 0.9. ALT, AST, and alkaline phosphatase unremarkable. ASSESSMENT: The patient is a 71-year-old male with: 1. Chronic leukocytosis. The patient has leukocytosis back in 2011 in the range of 24 to 15. 2. Diarrhea. 3. Status post chest pain. 4. Abdominal pain that has been resolved. 5. Afebrile. PLAN: 1. We will monitor the patient off of antibiotics. 2. We will send stool for culture and stool for C. difficile. 3. Monitor CBC. 4. Monitor BMP. 5. Recommend Pulmonary. 6. Recommend Hematology/Oncology consultation for evaluation of patient's chronic leukocytosis. 7. Based on the patient's clinical course and laboratories, we will do further recommendations. Thank you for this consultation. I will follow the patient with you during this hospitalization. Robert Meade M.D. DR: JACQUELIN JOB#: [id number] CC:
[2017-05-22] VITALS: BP 120/65
[2017-05-22 08:00] VITALS: BP 108/71
--- NOTE | 2017-05-22 08:15 | Consultation ---
DATE OF CONSULTATION: 05/21/2017 GASTROENTEROLOGY CONSULTATION CONSULTING PHYSICIAN: Johan Browning M.D. CHIEF COMPLAINT: Abdominal pain. HISTORY OF PRESENT ILLNESS: This is a 71-year-old male, alcoholic, who came to the hospital complaining of abdominal pain, tongue ulcerations, chest pain. GI consultation was requested for evaluation of above. According to the patient, his symptoms are improving except for tongue ulcerations. Denies any nausea, vomiting, dysphagia, or odynophagia. No melena, hematochezia, or weight loss. Last endoscopy according to him was three months ago. He was told that he had gastritis. Colonoscopy may be a few years ago and he stated nothing they found special. He also has history of abdominal surgeries, most probably from colon surgeries in the past, but he does not know exactly why it was done. PAST MEDICAL HISTORY: 1. Alcoholism. 2. Gastritis. 3. abdominal surgeries, partial colectomy. 4. Hypertension. PAST SURGICAL HISTORY: As above. ALLERGIES: To heparin. MEDICATIONS: Please see medication reconciliation list. SOCIAL HISTORY: He is a heavy alcohol user, about 1 bottle of vodka daily. No tobacco. No IV drug abuse. FAMILY HISTORY: Noncontributory. REVIEW OF SYSTEMS: A 10-point review of systems performed and pertinent positives in HPI. PHYSICAL EXAMINATION: VITAL SIGNS: Temperature 97.9, pulse , respirations 20, and blood pressure 115/75. HEENT: Normocephalic and atraumatic. Sclerae anicteric. NECK: Supple. No obvious adenopathy CARDIOVASCULAR: Regular rhythm. Plus S1 and S2. No obvious murmur. LUNGS: Clear to auscultation bilaterally. ABDOMEN: Positive bowel sounds. Soft and nontender. No rebound. No guarding. No peritoneal sign. There is a scar below the umbilicus from prior abdominal surgeries. EXTREMITIES: No cyanosis, no clubbing, no edema. NEUROLOGIC: Nonfocal. LABORATORY DATA: White count 8.1, hemoglobin is 17, hematocrit 55, platelet count 768,000. Chem-7 grossly normal. Liver function grossly normal. ASSESSMENT AND PLAN: This is a 71-year-old alcoholic, admitted to the hospital with nonspecific abdominal pain, chest pain, tongue ulcerations, relatively recent endoscopy and colonoscopy per the patient. PLAN: To start the patient on PPI for prior history of gastritis and alcoholism. Start the patient on multivitamin, thiamine, and folic acid. Follow with cardiology regarding cardiac clearance regarding chest pains. At this time, we are going to hold off doing endoscopy and colonoscopy. Send stool for OB. CT reviewed, there are no acute findings, the patient has had some gallstones but no evidence of acute cholecystitis. Johan Browning M.D. DR: Mayra JOB#: [id number] CC:
--- NOTE | 2017-05-22 08:15 | Consultation ---
DATE OF CONSULTATION: 05/20/2017 NOTE: POOR AUDIO HEMATOLOGY/ONCOLOGY CONSULTATION CONSULTING PHYSICIAN: Kael Mcdaniel M.D. REQUESTING PHYSICIAN: Kyleigh Richard M.D. REASON FOR CONSULTATION: Evaluation of anemia, polycythemia vera, essential thrombocytosis, and coagulopathy. IDENTIFYING DATA: Dear Dr. Richard, The patient is a pleasant 71-year-old male with past medical history significant for hypertension, history of abdominal surgery secondary to intestinal problems, history of hypertension, at this time presents to the [facility] with heavy alcohol abuse. Continues to drink alcohol, quit approximately two weeks ago, admitted to telemetry for further evaluation, has been started on hydroxyurea 500 mg b.i.d. has been seen by Cardiology Service, Dr. Shankar Mauricio. Systolic dysfunction noted in the LAD area. Hydroxyurea at this time and I appreciate the recommendations of Dr. Mauricio. PAST MEDICAL HISTORY: As noted above, essential thrombocytosis. MEDICATIONS: Aspirin. PAST SURGICAL HISTORY: None. ALLERGIES: Heparin. REVIEW OF SYSTEMS: CONSTITUTIONAL: No fever, chills, or night sweats. Minor were noted upon admission. SKIN: No rashes, bumps, or itching. HEENT: No headache, hearing or vision changes. BREASTS: No lumps, pain, or discharge. PULMONARY: No cough, sputum, or shortness of breath. GASTROINTESTINAL: No nausea, vomiting, or diarrhea. GENITOURINARY: No dysuria, frequency, or urgency. MUSCULOSKELETAL: No joint swelling, muscle pain, or trauma. PHYSICAL EXAMINATION: GENERAL: No distress. VITAL SIGNS: Reviewed. PULMONARY: Decreased breath sounds. CARDIOVASCULAR: Regular rate. No S3 or S4. ABDOMEN: Soft, nontender, and nondistended. EXTREMITIES: No cyanosis, swelling, or edema. LABORATORY AND DIAGNOSTIC DATA: WBC 17.8, hemoglobin 18, hematocrit 56, and platelet count 783,000. BUN of 20 and creatinine 0.8. BNP 1200. HDL 19. Coagulation, INR 1.2 and PTT of 34. Urinalysis revealed positive for . ASSESSMENT AND RECOMMENDATIONS: 1. Essential thrombocytosis, to be started on hydroxyurea, low dose, 500 mg p.o. b.i.d. 2. Erythrocytosis, likely secondary to essential thrombocytosis . Begin the patient on hydroxyurea low-dose in addition to aspirin treated by Cardiology Service. Currently on aspirin 162 mg p.o. daily. 3. Hypertension. Blood pressure goal less than 120. 4. Leukocytosis, likely secondary to also essential thrombocytosis. Closely monitor. Should improve with hydroxyurea. 5. Splenomegaly likely related to underlying alcohol abuse in addition to essential thrombocytosis. 6. Intractable abdominal pain, could be related to enlarging spleen in addition to poorly controlled ET. Rule out . I appreciate consultation. Kael Mcdaniel M.D. DR: TO JOB#: [id number] CC:
[2017-05-22] MEDS: Aspirin Baby 81mg ORAL SCH (08:36)
--- NOTE | 2017-05-22 08:56 | General Progress Note ---
Assessment/Plan Assessment/Plan ASSESSMENT AND RECOMMENDATIONS: 1. Essential thrombocytosis vesus polycythemia vera (patient does not know exactly which condition he has), started on hydroxyurea, low dose, 500 mg p.o. b.i.d. --> recommend he return to Dr. Russo of [facility], generally this is a chronic condition, patient's average prognosis is 20-30 years depending on the cytogenetics on the initial biopsy --> transformation risk of acute leukemia is increased given noncompliance and is generally 1-2%/year --> flow cytometry ordered but very low risk has chronic lymphocytic leukemia or a 2nd disorder --> continue aspirin 162mg po daily for prevention of cva --> phlebotomy and/or anegrilide if hydroxyurea dose does not control the disease 2. Erythrocytosis, likely secondary to essential thrombocytosis . --> continue hydrea --> Currently on aspirin 162 mg p.o. daily. 3. Hypertension. Blood pressure goal less than 120. 4. Leukocytosis, likely secondary to also essential thrombocytosis. Closely monitor. Should improve with hydroxyurea. 5. Splenomegaly likely related to underlying alcohol abuse in addition to essential thrombocytosis. 6. Intractable abdominal pain, could be related to enlarging spleen in addition to poorly controlled ET. Subjective Date patient seen: May 21, 2017 Constitutional: Denies: no symptoms, chills, diaphoresis, fever, malaise, weakness, other HEENT: Denies: no symptoms, eye pain, blurred vision, tearing, double vision, ear pain, ear discharge, nose pain, nose congestion, throat pain, throat swelling, mouth pain, mouth swelling, other Cardiovascular: Denies: no symptoms, chest pain, edema, irregular heart rate, lightheadedness, palpitations, syncope, other Respiratory: Denies: no symptoms, cough, orthopnea, shortness of breath, SOB with excertion, SOB at rest, sputum, stridor, wheezing, other Gastrointestinal/Abdominal: Denies: no symptoms, abdomen distended, abdominal pain, black stools, tarry stools, blood in stool, constipated, diarrhea, difficulty swallowing, nausea, poor appetite, poor fluid intake, rectal bleeding , vomiting, other Genitourinary: Denies: no symptoms, burning, discharge, frequency, flank pain, hematuria, incontinence, pain, urgency, other Neurologic/Psychiatric: Denies: no symptoms, anxiety, depressed, emotional problems, headache, numbness, paresthesia, pre-existing deficit, seizure, tingling, tremors, weakness, other Endocrine: Denies: no symptoms, excessive sweating, flushing, intolerance to cold, intolerance to heat, increased hunger, increased thirst, increased urine, unexplained weight gain, unexplained weight loss, other Hematologic/Lymphatic: Denies: no symptoms, anemia, easy bleeding, easy bruising, other Allergies: Coded Allergies: HEPARIN (Unverified Allergy, Severe, 05/19/17) Subjective no fevers or chills, no night sweats Objective Last 24 Hour Vital Signs Date Time Temp Pulse Resp B/P (MAP) Pulse Ox O2 Delivery O2 Flow Rate FiO2 05/22/17 08:00 97.5 71 20 108/71 95 Room Air 97.5 05/22/17 04:00 68 05/22/17 00:00 96.8 78 19 120/65 97 Room Air 96.8 05/22/17 00:00 71 05/21/17 20:00 78 05/21/17 20:00 97.5 74 20 113/76 96 Room Air 97.5 05/21/17 19:29 73 20 Room Air 05/21/17 17:39 103/64 05/21/17 16:00 93 05/21/17 16:00 96.6 69 20 103/64 97 Room Air 96.6 05/21/17 12:00 68 Intake and Output 05/21/17 05/22/17 19:00 07:00 Intake Total 300 ml Balance 300 ml Intake Oral 300 ml # Voids 2 1 Laboratory Tests 05/21/17 09:00: White Blood Count 18.1H, Red Blood Count 6.97H, Hemoglobin 17.8, Hematocrit 55.5H, Mean Corpuscular Volume 80, Mean Corpuscular Hemoglobin 25.6L, Mean Corpuscular Hemoglobin Concent 32.1, Red Cell Distribution Width 16.5H, Platelet Count 768H, Mean Platelet Volume 6.7, Neutrophils (%) (Auto) , Lymphocytes (%) (Auto) , Monocytes (%) (Auto) , Eosinophils (%) (Auto) , Basophils (%) (Auto) , Differential Total Cells Counted 100, Neutrophils % ( Manual) 81H, Lymphocytes % (Manual) 12L, Monocytes % (Manual) 5, Eosinophils % ( Manual) 0, Basophils % (Manual) 2, Band Neutrophils 0, Platelet Estimate IncreasedH, Platelet Morphology Normal, Sodium Level 137, Potassium Level 5.1, Chloride Level 105, Carbon Dioxide Level 22, Anion Gap 10, Blood Urea Nitrogen 19H, Creatinine 0.9, Estimat Glomerular Filtration Rate > 60, Glucose Level 96, Calcium Level 8.9, Total Bilirubin 0.5, Aspartate Amino Transf (AST/SGOT) 28, Alanine Aminotransferase (ALT/SGPT) 12, Alkaline Phosphatase 103, Troponin I 0.000, Total Protein 7.6, Albumin 3.9, Globulin 3.7, Albumin/Globulin Ratio 1.1 Height (Feet): 5 Height (Inches): 11.00 Weight (Pounds): 172 General Appearance: no apparent distress Neck: non-tender Cardiovascular: regular rhythm Respiratory/Chest: normal breath sounds Abdomen: normal bowel sounds Extremities: non-tender Edema: 1+ Leg (L), 1+ Leg (R) Edema: mild edema Neurologic: alert Skin: warm/dry Kael Mcdaniel MD May 22, 2017 08:56
[2017-05-22] MEDS: Lisinopril 2.5mg tab ORAL SCH (09:00)
[2017-05-22] MEDS ORDERED: Thiamine 100mg tab ORAL SCH (09:00)
--- NOTE | 2017-05-22 09:27 | Diagnostic Imaging Report ---
Indications: Chest pain Technique: Single day single isotope protocol utilized. Initially, resting images obtained using IV administration 7.8 millicuries 99M technetium Myoview. Subsequently, patient underwent treadmill stress testing. See cardiology report for details. During exercise, IV administration 32.6 mCi 99 M technetium Myoview. SPECT and planar images obtained. SPECT images gated to 8 phases of the cardiac cycle were also obtained, and reformatted into cine images for evaluation of ejection fraction. Comparison: Findings: The presence or absence of symptoms during exercise is not described on cardiology report. Per cardiology report, resting EKG demonstrates normal sinus rhythm. Presence or absence of EKG changes during exercise is not described on cardiology report. Patient reached a peak heart rate of one 31 bpm, in excess of the targeted heart rate of 128 bpm. Imaging demonstrates a large perfusion defect involving the apex, extending symmetrically into the anterior, inferior, septal and lateral guadarrama no evidence of reperfusion. No reversible perfusion defect demonstrated.. Calculated post stress ejection fraction 49%. Gated wall motion images suggests apical hypokinesis Impression: Nonischemic clinical response to pharmacologic stress, per cardiology report Nonischemic electrocardiographic response to pharmacologic stress, per cardiology report Sizable fixed apical defect, consistent with apical infarct Negative for evidence of ischemia. Calculated post stress ejection fraction 49%
--- NOTE | 2017-05-22 11:22 | General Progress Note ---
Assessment/Plan Problem List: (1) Splenomegaly ICD Codes: R16.1 - Splenomegaly, not elsewhere classified SNOMED: 16394623 (2) Polycythemia vera ICD Codes: D45 - Polycythemia vera SNOMED: 103353938 (3) Gallstone ICD Codes: K80.20 - Calculus of gallbladder without cholecystitis without obstruction SNOMED: 609958708 (4) HTN (hypertension) ICD Codes: I10 - Essential (primary) hypertension SNOMED: 73249400 (5) Acute alcoholic intoxication ICD Codes: F10.129 - Alcohol abuse with intoxication, unspecified SNOMED: 87800576 Assessment/Plan ppi daily stable labs hold GI procedures for now Subjective ROS Limited/Unobtainable: Yes Allergies: Coded Allergies: HEPARIN (Unverified Allergy, Severe, 05/19/17) Subjective no event Objective Last 24 Hour Vital Signs Date Time Temp Pulse Resp B/P (MAP) Pulse Ox O2 Delivery O2 Flow Rate FiO2 05/22/17 09:00 108/71 05/22/17 08:41 74 18 Room Air 05/22/17 08:00 97.5 71 20 108/71 95 Room Air 97.5 05/22/17 04:00 68 05/22/17 00:00 96.8 78 19 120/65 97 Room Air 96.8 05/22/17 00:00 71 05/21/17 20:00 78 05/21/17 20:00 97.5 74 20 113/76 96 Room Air 97.5 05/21/17 19:29 73 20 Room Air 05/21/17 17:39 103/64 05/21/17 16:00 93 05/21/17 16:00 96.6 69 20 103/64 97 Room Air 96.6 05/21/17 12:00 68 Intake and Output 05/21/17 05/22/17 19:00 07:00 Intake Total 300 ml Balance 300 ml Intake Oral 300 ml # Voids 2 1 Height (Feet): 5 Height (Inches): 11.00 Weight (Pounds): 172 General Appearance: no apparent distress EENT: normal ENT inspection Neck: supple Cardiovascular: normal rate Respiratory/Chest: decreased breath sounds Abdomen: normal bowel sounds, non tender, soft Extremities: non-tender REYNA ARCEO May 22, 2017 11:22
[2017-05-22 12:00] VITALS: BP 119/76
[2017-05-22] MEDS ORDERED: [UNRECOGNIZED DRUG - OTHER] ORAL SCH (14:30)
[2017-05-22] MEDS ORDERED: FOLIC ACID1 MG ORAL (15:37)
[2017-05-22] MEDS ORDERED: [UNRECOGNIZED DRUG - OTHER] ORAL (15:37)
[2017-05-22] MEDS ORDERED: LISINOPRIL5 MG ORAL (15:37)
[2017-05-22] MEDS ORDERED: HYDREA500 MG ORAL (15:37)
[2017-05-22] MEDS ORDERED: ASPIRIN81 MG ORAL (15:37)
--- NOTE | 2017-05-22 15:38 | Pulmonology Progress Note ---
Assessment/Plan Problems: (1) ACS (acute coronary syndrome) (2) Intractable abdominal pain (3) Splenomegaly Assessment/Plan stress test done, negative for reversible ischemia symptomatic treatment ENT saw the pt dc home if stress test negative f/u cardio recommendations. Subjective ROS Limited/Unobtainable: No Constitutional: Reports: no symptoms HEENT: Repors: no symptoms Respiratory: Reports: no symptoms Allergies: Coded Allergies: HEPARIN (Unverified Allergy, Severe, 05/19/17) Objective Last 24 Hour Vital Signs Date Time Temp Pulse Resp B/P (MAP) Pulse Ox O2 Delivery O2 Flow Rate FiO2 05/22/17 12:00 97.7 69 20 119/76 96 Room Air 97.7 05/22/17 12:00 69 05/22/17 09:00 108/71 05/22/17 08:41 74 18 Room Air 05/22/17 08:00 71 05/22/17 08:00 97.5 71 20 108/71 95 Room Air 97.5 05/22/17 04:00 68 05/22/17 00:00 96.8 78 19 120/65 97 Room Air 96.8 05/22/17 00:00 71 05/21/17 20:00 78 05/21/17 20:00 97.5 74 20 113/76 96 Room Air 97.5 05/21/17 19:29 73 20 Room Air 05/21/17 17:39 103/64 05/21/17 16:00 93 05/21/17 16:00 96.6 69 20 103/64 97 Room Air 96.6 Intake and Output 05/21/17 05/22/17 19:00 07:00 Intake Total 300 ml Balance 300 ml Intake Oral 300 ml # Voids 2 1 General Appearance: WD/WN HEENT: normocephalic, atraumatic Respiratory/Chest: chest wall non-tender, lungs clear Cardiovascular: normal peripheral pulses, normal rate Abdomen: normal bowel sounds, soft, non tender Genitourinary: normal external genitalia Extremities: no clubbing Neurologic/Psychiatric: ophthalmology surgical technician II-XII grossly normal Microbiology Date/Time Source Procedure Growth Status 05/19/17 22:00 Nasal Nares MRSA Culture - Final NO METHICILLIN RESISTANT STAPH AUREUS... Complete 05/19/17 22:00 Rectum VRE Culture - Final NO VANCOMYCIN RESISTANT ENTEROCOCCUS ... Complete Current Medications Medications (Trade) Dose Ordered Sig/Sameer Route PRN Reason Start Time Stop Time Status Last Admin Dose Admin Acetaminophen (Tylenol) 650 mg Q4H PRN ORAL FEVER 05/19/17 21:30 06/18/17 21:29 Albuterol/ Ipratropium (Albuterol/ Ipratropium) 3 ml Q4H PRN HHN Shortness of Breath 05/19/17 21:30 05/24/17 21:29 Aspirin (ASA) 162 mg DAILY ORAL 05/20/17 09:00 06/19/17 08:59 05/22/17 08:36 Diltiazem HCl (Cardizem) 10 mg Q1H PRN IV HR > 120 05/19/17 21:30 06/18/17 21:29 Enalaprilat (Vasotec) 2.5 mg Q6H PRN IV sbp more than 160 05/19/17 21:30 06/18/17 21:29 Folic Acid (Folate) 1 mg DAILY ORAL 05/22/17 09:00 06/21/17 08:59 05/22/17 08:36 Hydroxyurea (Hydrea) 500 mg QHS ORAL 05/20/17 21:00 05/25/17 20:59 05/21/17 20:55 Lisinopril (Zestril) 2.5 mg BID ORAL 05/20/17 20:00 06/19/17 19:59 05/21/17 08:31 Morphine Sulfate (Morphine Sulfate) 2 mg Q4H PRN IVP severe Pain (Pain Scale 7-10) 05/19/17 21:30 05/26/17 21:29 Multivitamins (Multivitamins) 1 tab DAILY ORAL 05/22/17 09:00 06/21/17 08:59 05/22/17 08:36 Nitroglycerin (Ntg) 0.4 mg Q5MIN X 3 DOSES PRN SL Prn Chest Pain 05/19/17 21:30 06/18/17 21:29 Ondansetron HCl (Zofran) 4 mg Q6H PRN IVP Nausea & Vomiting 05/19/17 21:30 06/18/17 21:29 Pantoprazole (Protonix) 40 mg DAILY ORAL 05/20/17 09:00 06/19/17 08:59 05/22/17 08:36 Polyethylene Glycol (Miralax) 17 gm DAILYPRN PRN ORAL Constipation 05/19/17 21:30 06/18/17 21:29 Temazepam (Restoril) 15 mg HSPRN PRN ORAL Insomnia 05/19/17 21:30 05/26/17 21:29 Thiamine HCl (Vitamin B1) 100 mg DAILY ORAL 05/22/17 09:00 06/21/17 08:59 05/22/17 08:36 Kyleigh Richard MD May 22, 2017 15:38
--- NOTE | 2017-05-22 17:09 | Consultation ---
History of Present Illness General Date patient seen: May 21, 2017 Chief Complaint: alcohol anxieyt Present Illness HPI 71-year-old male with hx of abdominal surgery secondary to "intestinal blockage ", the pt has hx of alcohol dependence, and anxiety. the pt recently anxious. and recently stopped using alcohol. Allergies: Coded Allergies: HEPARIN (Unverified Allergy, Severe, 05/19/17) Medication History Scheduled Aspirin* (Aspirin*), 325 MG ORAL BID, (Reported) Aspirin* (Aspirin*), 162 MG ORAL DAILY Folic Acid* (Folic Acid*), 1 MG ORAL DAILY Hydroxyurea* (Hydrea*), 500 MG ORAL QHS Lisinopril (Lisinopril*), 2.5 MG ORAL BID [Kam's Soln 120ml], 5 ML ORAL FOUR TIMES A DAY Discontinued Medications Aspirin* (Aspir 81*), 81 MG ORAL DAILY, (Reported) Discontinued Reason: Prescription changed Carvedilol (Coreg), 6.25 MG ORAL EVERY 12 HOURS Discontinued Reason: Pt stopped taking med Dicyclomine Hcl* (Dicyclomine Hcl*), 10 MG PO QID Discontinued Reason: Pt stopped taking med Hydrochlorothiazide* (Hydrochlorothiazide*), 25 MG ORAL DAILY Discontinued Reason: Pt stopped taking med Ibuprofen* (Motrin*), 600 MG ORAL Q8H PRN for For Pain Discontinued Reason: Pt stopped taking med Patient History History Provided By: Patient, Medical Record, PMD Healthcare decision maker Resuscitation status Full Code Advanced Directive on File Past Medical/Surgical History Past Medical/Surgical History: (1) Acute alcoholic intoxication (2) Low back pain (3) Gallstone (4) Polycythemia vera (5) Splenomegaly (6) CHF (congestive heart failure) (7) ACS (acute coronary syndrome) (8) Intractable abdominal pain (9) Acute alcoholic intoxication (10) HTN (hypertension) (11) Tongue disease Review of Systems Psychiatric: Reports: prior hx, anxiety, depressed feelings, emotional problems Physical Exam General Appearance: no apparent distress, alert, agitated Last 24 Hour Vital Signs Date Time Temp Pulse Resp B/P (MAP) Pulse Ox O2 Delivery O2 Flow Rate FiO2 05/22/17 12:00 97.7 69 20 119/76 96 Room Air 97.7 05/22/17 12:00 69 05/22/17 09:00 108/71 05/22/17 08:41 74 18 Room Air 05/22/17 08:00 71 05/22/17 08:00 97.5 71 20 108/71 95 Room Air 97.5 05/22/17 04:00 68 05/22/17 00:00 96.8 78 19 120/65 97 Room Air 96.8 05/22/17 00:00 71 05/21/17 20:00 78 05/21/17 20:00 97.5 74 20 113/76 96 Room Air 97.5 05/21/17 19:29 73 20 Room Air 05/21/17 17:39 103/64 Intake and Output 05/21/17 05/22/17 19:00 07:00 Intake Total 300 ml Balance 300 ml Intake Oral 300 ml # Voids 2 1 Height (Feet): 5 Height (Inches): 11.00 Weight (Pounds): 172 Medications Current Medications Medications (Trade) Dose Ordered Sig/Sameer Route PRN Reason Start Time Stop Time Status Last Admin Dose Admin Acetaminophen (Tylenol) 650 mg Q4H PRN ORAL FEVER 05/19/17 21:30 06/18/17 21:29 Albuterol/ Ipratropium (Albuterol/ Ipratropium) 3 ml Q4H PRN HHN Shortness of Breath 05/19/17 21:30 05/24/17 21:29 Aspirin (ASA) 162 mg DAILY ORAL 05/20/17 09:00 06/19/17 08:59 05/22/17 08:36 Diltiazem HCl (Cardizem) 10 mg Q1H PRN IV HR > 120 05/19/17 21:30 06/18/17 21:29 Enalaprilat (Vasotec) 2.5 mg Q6H PRN IV sbp more than 160 05/19/17 21:30 06/18/17 21:29 Folic Acid (Folate) 1 mg DAILY ORAL 05/22/17 09:00 06/21/17 08:59 05/22/17 08:36 Hydroxyurea (Hydrea) 500 mg QHS ORAL 05/20/17 21:00 05/25/17 20:59 05/21/17 20:55 Lisinopril (Zestril) 2.5 mg BID ORAL 05/20/17 20:00 06/19/17 19:59 05/21/17 08:31 Morphine Sulfate (Morphine Sulfate) 2 mg Q4H PRN IVP severe Pain (Pain Scale 7-10) 05/19/17 21:30 05/26/17 21:29 Multivitamins (Multivitamins) 1 tab DAILY ORAL 05/22/17 09:00 06/21/17 08:59 05/22/17 08:36 Nitroglycerin (Ntg) 0.4 mg Q5MIN X 3 DOSES PRN SL Prn Chest Pain 05/19/17 21:30 06/18/17 21:29 Ondansetron HCl (Zofran) 4 mg Q6H PRN IVP Nausea & Vomiting 05/19/17 21:30 06/18/17 21:29 Pantoprazole (Protonix) 40 mg DAILY ORAL 05/20/17 09:00 06/19/17 08:59 05/22/17 08:36 Polyethylene Glycol (Miralax) 17 gm DAILYPRN PRN ORAL Constipation 05/19/17 21:30 06/18/17 21:29 Temazepam (Restoril) 15 mg HSPRN PRN ORAL Insomnia 05/19/17 21:30 05/26/17 21:29 Thiamine HCl (Vitamin B1) 100 mg DAILY ORAL 05/22/17 09:00 06/21/17 08:59 05/22/17 08:36 Assessment/Plan Assessment/Plan Alcohol dependence anxiety d/o valium prn folic acid jonahamin Tristian Preston M.D. May 22, 2017 17:09
--- NOTE | 2017-05-22 17:10 | General Progress Note ---
Assessment/Plan Status: stable, progressing Assessment/Plan Alcohol dependence anxiety d/o valium prn folic acid thiamin Subjective Date patient seen: May 22, 2017 Neurologic/Psychiatric: Reports: anxiety, depressed, emotional problems Allergies: Coded Allergies: HEPARIN (Unverified Allergy, Severe, 05/19/17) Objective Last 24 Hour Vital Signs Date Time Temp Pulse Resp B/P (MAP) Pulse Ox O2 Delivery O2 Flow Rate FiO2 05/22/17 12:00 97.7 69 20 119/76 96 Room Air 97.7 05/22/17 12:00 69 05/22/17 09:00 108/71 05/22/17 08:41 74 18 Room Air 05/22/17 08:00 71 05/22/17 08:00 97.5 71 20 108/71 95 Room Air 97.5 05/22/17 04:00 68 05/22/17 00:00 96.8 78 19 120/65 97 Room Air 96.8 05/22/17 00:00 71 05/21/17 20:00 78 05/21/17 20:00 97.5 74 20 113/76 96 Room Air 97.5 05/21/17 19:29 73 20 Room Air 05/21/17 17:39 103/64 Intake and Output 05/21/17 05/22/17 19:00 07:00 Intake Total 300 ml Balance 300 ml Intake Oral 300 ml # Voids 2 1 Height (Feet): 5 Height (Inches): 11.00 Weight (Pounds): 172 General Appearance: no apparent distress, alert, agitated Neurologic: alert, oriented x 3, responsive, depressed affect Tristian Preston M.D. May 22, 2017 17:10
--- NOTE | 2017-05-22 18:30 | Consultation ---
DATE OF CONSULTATION: 05/22/2017 HEAD, NECK SURGERY ENT CONSULT REFERRING PHYSICIAN: Kyleigh Richard M.D. CONSULTING PHYSICIAN: Woo Montana M.D. INDICATION FOR CONSULTATION: A 71-year-old, alcoholic who was admitted for alcohol intoxication and issues with his gallbladder, acute ischemic heart disease, and splenomegaly. It has also been noted that he has ulcers on either side of his tongue. PAST MEDICAL HISTORY: Heavy alcohol use, quit 2 weeks ago theoretically. ALLERGIES: Allergic to codeine. MEDICATIONS: At home were aspirin, which has been discontinued. He is on hydrochlorothiazide and Motrin. In the hospital, vitamin B1, folate, multivitamins, hydroxyurea, lisinopril, Protonix, albuterol, nitroglycerin, morphine sulfate, MiraLAX, Zofran, and Restoril. PHYSICAL EXAMINATION: VITAL SINGS: Height 180.34 cm, weight 78.16 kg, and BMI 24.0 kg/mt sq. HEENT: Head is normocephalic. Ears positive light reflex. Normal canal. Nose normal. Mouth normal. Some gum disease. Tongue, he has on either side of this tongue laterally where his second and third molars are some small ulceration. It is not deep. It appears more like a leukoplakia type issue. ASSESSMENT: It is unlikely this is a cancer. I have recommended he be placed on Kam's solution 1 teaspoon 3 times a day for 5 days. He will see me in my office next week. We discussed this. Dr. Richard is aware. When I see him, if the ulcerations are not completely gone or 90% gone, I will then then biopsy them, although it it unlikely it is a cancer since it is bilateral. Thank you very much for asking my opinion in the care and treatment of this patient. Woo Montana M.D. DR: KASH JOB#: [id number] CC: LAUREN
--- NOTE | 2017-05-22 19:02 | Infectious Diseases Prog Note ---
Assessment/Plan Assessment/Plan ASSESSMENT: The patient is a 71-year-old male with: Chronic leukocytosis. 2/2 essential thrombocytosis ( leukocytosis back in 2011 in the range of 24 to 15 0 Diarrhea ? 2/3 BM / day off and on Status post chest pain. Abdominal pain that has been resolved. Afebrile. ?CP Geography tongue Ethoh abuse splenomegaly Hypertension CHF. History of distal colon resection in the past PLAN: monitor the patient off of antibiotics. tool for culture and stool for C. difficile. Monitor CBC. Monitor BMP. Hematology/Oncology fup Card fup Subjective Constitutional: Denies: no symptoms, fever, chills, fatigue, anorexia, drenching sweats, other Allergies: Coded Allergies: HEPARIN (Unverified Allergy, Severe, 05/19/17) Objective Vital Signs Last 24 Hour Vital Signs Date Time Temp Pulse Resp B/P (MAP) Pulse Ox O2 Delivery O2 Flow Rate FiO2 05/22/17 12:00 97.7 69 20 119/76 96 Room Air 97.7 05/22/17 12:00 69 05/22/17 09:00 108/71 05/22/17 08:41 74 18 Room Air 05/22/17 08:00 71 05/22/17 08:00 97.5 71 20 108/71 95 Room Air 97.5 05/22/17 04:00 68 05/22/17 00:00 96.8 78 19 120/65 97 Room Air 96.8 05/22/17 00:00 71 05/21/17 20:00 78 05/21/17 20:00 97.5 74 20 113/76 96 Room Air 97.5 05/21/17 19:29 73 20 Room Air Height (Feet): 5 Height (Inches): 11.00 Weight (Pounds): 172 HEENT: anicteric Respiratory/Chest: no respiratory distress Cardiovascular: regular rhythm Abdomen: non distended Microbiology Date/Time Source Procedure Growth Status 05/19/17 22:00 Nasal Nares MRSA Culture - Final NO METHICILLIN RESISTANT STAPH AUREUS... Complete 05/19/17 22:00 Rectum VRE Culture - Final NO VANCOMYCIN RESISTANT ENTEROCOCCUS ... Complete Robert eMade MD May 22, 2017 19:02
--- NOTE | 2017-05-23 01:52 | General Progress Note ---
Assessment/Plan Assessment/Plan 1. Essential thrombocytosis vesus polycythemia vera (patient does not know exactly which condition he has), started on hydroxyurea, low dose, 500 mg p.o. b.i.d. --> recommend he return to Dr. Russo of [facility], generally this is a chronic condition, patient's average prognosis is 20-30 years depending on the cytogenetics on the initial biopsy --> transformation risk of acute leukemia is increased given noncompliance and is generally 1-2%/year --> flow cytometry ordered but very low risk has chronic lymphocytic leukemia or a 2nd disorder --> continue aspirin 162mg po daily for prevention of cva --> phlebotomy and/or anegrilide if hydroxyurea dose does not control the disease 2. Erythrocytosis, likely secondary to essential thrombocytosis . --> continue hydrea --> Currently on aspirin 162 mg p.o. daily. 3. Hypertension. Blood pressure goal less than 120. 4. Leukocytosis, likely secondary to also essential thrombocytosis. --> Closely monitor. Should improve with hydroxyurea. --> Wbc count remains elevated. Trend cbc 5. Splenomegaly likely related to underlying alcohol abuse in addition to essential thrombocytosis. 6. Intractable abdominal pain, could be related to enlarging spleen in addition to poorly controlled ET. Subjective Date patient seen: May 22, 2017 Constitutional: Denies: no symptoms, chills, diaphoresis, fever, malaise, weakness, other HEENT: Denies: no symptoms, eye pain, blurred vision, tearing, double vision, ear pain, ear discharge, nose pain, nose congestion, throat pain, throat swelling, mouth pain, mouth swelling, other Cardiovascular: Denies: no symptoms, chest pain, edema, irregular heart rate, lightheadedness, palpitations, syncope, other Respiratory: Denies: no symptoms, cough, orthopnea, shortness of breath, SOB with excertion, SOB at rest, sputum, stridor, wheezing, other Gastrointestinal/Abdominal: Denies: no symptoms, abdomen distended, abdominal pain, black stools, tarry stools, blood in stool, constipated, diarrhea, difficulty swallowing, nausea, poor appetite, poor fluid intake, rectal bleeding , vomiting, other Genitourinary: Denies: no symptoms, burning, discharge, frequency, flank pain, hematuria, incontinence, pain, urgency, other Neurologic/Psychiatric: Denies: no symptoms, anxiety, depressed, emotional problems, headache, numbness, paresthesia, pre-existing deficit, seizure, tingling, tremors, weakness, other Hematologic/Lymphatic: Reports: anemia Allergies: Coded Allergies: HEPARIN (Unverified Allergy, Severe, 05/19/17) Subjective Leukocytosis. NAD. Pending discharge. Objective Last 24 Hour Vital Signs Date Time Temp Pulse Resp B/P (MAP) Pulse Ox O2 Delivery O2 Flow Rate FiO2 05/22/17 12:00 97.7 69 20 119/76 96 Room Air 97.7 05/22/17 12:00 69 05/22/17 09:00 108/71 05/22/17 08:41 74 18 Room Air 05/22/17 08:00 71 05/22/17 08:00 97.5 71 20 108/71 95 Room Air 97.5 05/22/17 04:00 68 Intake and Output 05/22/17 05/23/17 19:00 07:00 Intake Total 720 ml Balance 720 ml Intake Oral 720 ml Height (Feet): 5 Height (Inches): 11.00 Weight (Pounds): 172 General Appearance: no apparent distress Cardiovascular: normal rate Abdomen: soft Kael Mcdaniel MD May 23, 2017 01:52
--- NOTE | 2017-05-23 09:21 | Discharge Summary ---
Discharge Summary Discharge Summary Discharge Summary DATE OF ADMISSION: 05/19/2017 DATE OF DISCHARGE: 05/22/2017 REASON FOR ADMISSION: 71 years old male with past medical history significant for CHF, hypertension, ETOH abuse, distal colon resection secondary to obstruction, presented to emergency department with chest discomfort and abdominal pain. He denied fever or cough. Patient reported quitting alcohol 2 weeks ago. Blood pressure was elevated 157/92. LFT and lipase were within normal limits. Pro BNP 1273. Troponin was negative. EKG showed normal sinus rhythm, no acute ischemic changes. Urinalysis was negative for evidence of UTI. WBC -19.8. Hemoglobin- 17.8 hematocrit -53.6 platelets -853. Chest x-ray revealed no acute cardiopulmonary pathology. CT of the abdomen and pelvis revealed no acute abnormalities. Noted cholelithiasis, splenomegaly, cardiomegaly, bilateral pulmonary atelectasis. Patient was admitted for chest pain, rule out acute coronary syndrome, polycythemia vera, splenomegaly gallstones, intractable abdominal pain. CONSULTANTS: -garment looper - infectious disease specialist -GI specialist -psychiatrist - ENT specialist - dwarf tree grower HOSPITAL COURSE: Patient admitted to telemetry floor. Serial troponin were negative. Echocardiogram revealed ejection fraction of 40%, right ventricular systolic pressure of 9, mild left ventricular hypertrophy and moderate aortic insufficiency. Venous duplex bilateral lower extremity was negative. Stress test revealed with nonischemic clinical response. Sizable fixed apical defect consistent with apical infarct. Calculated ejection fraction 49%. No evidence of reversible ischemia. Per garment looper, no signs or symptoms of acute coronary syndrome or CHF . Clay Shop Supervisor stated that patient had left ventricle dysfunction.He recommended follow up with garment looper as outpatient. Lipid panel was within normal limits as well as TSH. Aspirin was continued. Blood pressure was managed with the EDISON inhibitor. Clay Shop Supervisor cleared for discharge. GI specialist closely followed. Patient had a history of distal colon resection secondary to obstruction. Hemoglobin and hematocrit remained stable , patient was on GI prophylaxis. Bowel regimen instituted. Pain management provided. Per GI specialist hold GI procedure for now , may consider as outpatient as needed. Patient was counseled on abstinence from alcohol. Thiamine and folic acid added to existing regimen. Blow Down Operator closely followed. Patient had essential thrombocytosis versus polycythemia vera. Patient was started on hydroxyurea, low dose. Patient was recommended by dwarf tree grower to return to Dr. Russo at [facility] for follow-up. Blow Down Operator recommended phlebotomy and/o anagrelide if hydroxyurea not controlled the disease. Leukocytosis was likely secondary to essential thrombocytosis. Erythrocytosis was also likely secondary to Essential thrombocytosis . Blow Down Operator recommended closely monitor counts. Leukocytosis should improve with hydroxyurea. Splenomegaly was likely related to underlying alcohol abuse in addition to essential thrombocytosis. ID specialist closely follow. No clinical evidence of infection. Chronic leukocytosis as per dwarf tree grower due to essential thrombocytosis Urine culture was negative. No fever. ID doctor recommended to keep patient off antibiotics. ENT specialist seen the patient for bilateral tongue ulcers. ENT recommended to start Kam's solution 3 Times a day for 5 days. Patient to see ENT specialist as outpatient in one week . If no significant improvement, biopsy will be done. Per ENT, cancer unlikely given bilateral distributions of ulcers. Psychiatry seen and evaluated the patient and diagnosed patient with alcohol dependency and anxiety disorder . She recommended to continue with thiamine and folic acid, reinforced abstinence from alcohol, Valium was provided as needed while in the hospital. A Abdominal pain resolved. No chest discomfort. All consultants cleared the patient for discharge. FINAL DIAGNOSES: Chest pain Left ventricular systolic dysfunction Essential thrombocytosis versus polycythemia vera. Chronic leukocytosis secondary to essential thrombocytosis. Erythrocytosis secondary to essential thrombocytosis. Gallstones. ETOH abuse. ETOH dependency Bilateral tongue ulcers. Abdominal pain, resolved. Splenomegaly. CHF history. Hypertension History of distal colon resection. Anxiety disorder. DISCHARGE MEDICATIONS: See Medication Reconciliation list. DISCHARGE INSTRUCTIONS: Patient was discharged home Follow-up with the ENT specialist in one week. Follow up with primary care provider in one week. I have been assigned to dictate discharge summary for this account. I was not involved in the patient's management. Melony Vides NP ([place]) May 23, 2017 09:21
== END 2017-05-22 17:50 | disposition home or self-care (01) | DRG 694 ==
LOC: EDBD 13:54 → EMR 14:30 → 2E 19:57 → EDBEDREQ 20:39
DX: D47.3 Essential (hemorrhagic) thrombocythemia (principal); I11.0 Hypertensive heart disease with heart failure; I50.22 Chronic systolic (congestive) heart failure; D45 Polycythemia vera; R07.9 Chest pain, unspecified; R16.1 Splenomegaly, not elsewhere classified; R10.9 Unspecified abdominal pain; F10.20 Alcohol dependence, uncomplicated; Z88.8 Allergy status to other drugs, medicaments and biological substances; Z90.49 Acquired absence of other specified parts of digestive tract; K14.0 Glossitis; F41.9 Anxiety disorder, unspecified; I10 Essential (primary) hypertension; Z88.6 Allergy status to analgesic agent; K80.80 Other cholelithiasis without obstruction
CPT/HCPCS: 36415; 71045; 74177; 78452; 80053; 80061; 81003; 82550; 82553; 82962; 83690; 83880; 84443; 84484; 85007; 85025; 85610; 85730; 86140; 87081; 87086; 93005; 93017; 93306; 93970; 94664; 99285; J2405; J2785